=== PATIENT | male | born 1990 | race Caucasian/White ===

== ENCOUNTER 2020-02-07 10:04 | Emergency (ER) | payer SELFPAY ==
[2020-02-07 10:05] VITALS: BP 158/136; PULSE 114; RESP 18; TEMP 36.6; O2SAT 97; BMI 22.2
--- NOTE | 2020-02-07 11:46 | ED.VIS.GEN ---
History of Present Illness Chief Complaint: Cellulitis Informant: Patient Narrative: Patient states that he started using heroin and meth again last week. He developed cellulitis and swelling due to a picked scab the right eyebrow. He got a prescription for Bactrim took a couple days worth that he felt better so he stopped taking it. 2 days ago started swelling today is significantly worse. States he has not used for couple days and is doing better. No fevers. No vision changes. Past Medical History - Allergies and Home Meds Allergies/Adverse Reactions: Allergies No Known Allergies Allergy (Verified 02/07/20 10:07) Primary Care Physician: NOT,DEFINED [Primary Care Provider] - Smoking Status: Current every day smoker Review of Systems General: Denies: Chills, Fever, Sweats Eyes: Denies: Visual changes - bilaterally, Diplopia ENT: Denies: Rhinorrhea, Sore throat Cardiovascular: Denies: Chest pain, Palpitations Respiratory: Denies: Dyspnea, Cough, Dyspnea on exertion Gastrointestinal: Denies: Abdominal pain, Nausea, Vomiting, Diarrhea, Melena, Hematochezia Genitourinary: Denies: Dysuria, Hematuria, Frequency Musculoskeletal: Denies: Back pain, Extremity Pain Skin: Reports: Rash, Wounds Neurological: Denies: Headache, Weakness, Numbness Physical Exam Vital Signs/Narrative: Vital Signs Temp Pulse Resp BP Pulse Ox 02/07/20 10:05 98 F 114 H 18 158/136 H 97 Inital Vital Signs reviewed: Yes General: Well nourished, Well developed, No Acute Distress Head: Normocephalic, Atraumatic Eyes: Perrl, EOMI ENT: Moist mucous membranes, No rhinorrhea Neck: Supple, Nontender Cardiovascular: Regular rate, Regular rhythm, No murmurs Respiratory: No distress, CTA bilaterally, Chest nontender Abdomen: Soft, Nontender, Nondistended, Normal bowel sounds Back: Nontender, Normal Inspection Extremities: Nontender, No edema Skin: Normal color, - - Patient has numerous excoriated wounds on his face and body. The right eyebrow is significantly swollen and erythematous. This extends down onto the upper lid. The eye itself appears normal. EOMI. PERRLA. No photophobia. Neurological: Alert, Oriented x3, Cranial nerves II-XII grossly intact, Normal Strength, Normal Sensation Psychological: Normal affect, Normal Mood Diagnostic/Tx/Re-eval - Medical Decision Making Patient will be started on both Keflex and Bactrim. I have asked for him to have early follow-up return if worsening or concerns he notes understanding. We talked about his addiction and gave him resources. ED Disposition - Plan for ED Patient: Disposition: Home or Assisted Living Diagnosis: Facial cellulitis Instructions: Cellulitis Prescriptions: Smz/Tmp Ds [Bactrim Ds] 2 tab PO BID #28 tab Prescription Printed Cephalexin [Keflex] 500 mg PO Q6 #40 cap Prescription Printed Referrals: Aldo Villanueva MD [STAFF PHYSICIAN] - (3-5 days for wound check )
[2020-02-07 12:03] VITALS: BP 130/86; PULSE 90; RESP 16
--- NOTE | 2020-02-07 12:04 | ED.RN ---
REVIEWED D/C INSTRUCTIONS, FOLLOW UP CARE, PRESCRIPTIONS, AND S/S THAT WOULD WARRANT A RETURN TO THE ED WITH PT. PT VERBALIZED AN UNDERSTANDING AND DENIES FURTHER QUESTIONS FOR THIS RN. PT SKIN P/W/D, RESP EVEN AND UNLABORED, PT A&O X 3, NO DISTRESS NOTED.
== END 2020-02-07 12:23 | disposition home or self-care (01) ==
LOC: ED 12:15
PROVIDERS: Emergency Provider Emergency Medicine
DX: L03.211 Cellulitis of face (principal)
CPT/HCPCS: 99282

== ENCOUNTER 2020-02-14 18:51 | Observation (INO) | payer MEDICAID, SELFPAY ==
[2020-02-14 18:51] VITALS: BP 133/80; PULSE 100; RESP 14; TEMP 36.4; O2SAT 98; BMI 20.7
--- NOTE | 2020-02-14 19:10 | ED.DCSUM_ITS ---
- ER Visit Summary Date of Service: 02/14/20 Chief Complaint: Resting detox for heroin and methamphetamine abuse History of Present Illness: The patient is a 30 M history of drug abuse for 12 years. 3 years sober. For the last 3 weeks he has been abusing heroin and methamphetamines. Patient states he does shoot up. He denies any fever or chills. He has gone through detox in the past but not recently. Denies any recent illness. Physical Examination: Young male no acute distress vital signs stable afebrile. H EENT exam unremarkable. Neck nontender no lymphadenopathy. Lungs clear to auscultation bilaterally. Heart regular rhythm no murmur. Abdomen soft nontender. Patient moving all 4 extremities. No cellulitis. No abscess. He does have track edward in his left antecubital area. Back nontender. Skin unremarkable. Neurologically is awake and alert. No focal motor deficits. Test Results: [] Emergency Department Course and Treatment: I have are spoken to the hospitalist about admission. She did request screening labs. Treatment Plan: Admission for detox Disposition: Admission for detox Impression: Requesting detox for heroin and methamphetamine IV drug abuse History of drug abuse This note was generated with [employer] dictation software. It may contain incorrect words, spelling, and punctuation that were not noted in review of the chart prior to signing ED Disposition - Plan for ED Patient: Referrals: Care Physician,No Primary [Primary Care Provider] -
--- NOTE | 2020-02-14 19:35 | HP.PCM_ITS ---
Problem List (1) Acute opioid withdrawal Status: Acute (2) Nicotine dependence Status: Chronic Qualifiers: Nicotine product type: cigarettes (3) Cellulitis Status: Acute Qualifiers: Site of cellulitis: face Qualified Code(s): L03.211 - Cellulitis of face (4) Polysubstance (including opioids) dependence w/o physiol dependence Status: Acute History of Present Illness Date of Admission: 02/14/20 Chief Complaint: Request for medical stabilisation for acute opioid withdrawal The patient is a 30 year old M with past medical history of poly-substance use disorder, who had been sober for 3 years until 3 weeks ago whilst in a difficult job situation, patient relapsed and has been using heroin, fentanyl and methamphetamines. He admits to using more than 3 g of heroin/fentanyl/amphetamine mixture every other day. He has history of chemical detox in the past. He comes in requesting medical stabilization for cessation of IV heroin/fentanyl. He complains of mild restlessness but denied any hot or cold flashes or nausea or vomiting or diarrhea. He was recently seen in the ED on 02/07/20 with cellulitis of the face from picking up scabs. He was discharged on Bactrim and Keflex. He says that his cellulitis has improved significantly. In the ED, vitals showed temperature of 97.6F, heart rate 100, blood pressure 133/80, respiratory rate was 14, SPO2 98% on room air. His admitting blood work was pending. Past Medical History Past Medical History (Chronic Problems): Chronic Problems Nicotine dependence (Chronic) Allergies No Known Allergies Allergy (Verified 02/14/20 18:53) Home Medications: Ambulatory Orders Medication Instructions Recorded Cephalexin [Keflex] 500 mg PO Q6 #40 cap 02/07/20 Smz/Tmp Ds [Bactrim Ds] 2 tab PO BID #28 tab 02/07/20 Sulfamethoxazole/Trimethoprim 1 ea PO BID 02/07/20 [Sulfamethoxazole-Tmp Ds Tablet] Surgical History: arthroscopy, knee - Sepsis post right knee meniscal repair x2, torn ACLS x2, total hip arthroplasty - Status post left hip surgery during childhood Psychiatric History: No pertinent psych hx Lives: Spouse/ Significant Other Smoking Status: Current every day smoker Tobacco Use: Cigarettes Alcohol: None Drugs: Heroin, - - Fentanyl, methamphetamine - *Family History Paternal History Items: No pertinent history Maternal History Items: - - Polysubstance use disorder Review of Systems Constitutional: Denies: Anorexia, Chills, Fever, Malaise, Weakness, Weight Change, Fatigue Eyes: Denies: Blurred vision, Cataracts, Conjunctivae Inflammation, Pain, Redness, Vision Change HEENT: Denies: Difficulty Hearing, Difficulty Swallowing, Head Aches, Hearing Changes, Sinus Congestion, Sinus Drainage Cardiovascular: Denies: Chest Pain, Palpitations Respiratory: Denies: Cough, Shortness of breath at rest, Sputum production Gastrointestinal: Denies: Abdominal Pain, Nausea, Vomiting Genitourinary: Denies: Dysuria Musculoskeletal: Denies: Joint Pain, Joint Tenderness Skin: Reports: Rash - Recent cellulitis of the face, periorbital region, upper extremities and upper back. Denies: Wounds Neurological: Denies: Numbness, Tingling, Focal weakness Psychiatric: Denies: Anxiety, Depression, Homicidal Ideations, Suicidal Ideations Hematologic/ Lymphatic: Denies: Easy Bruising, Easy Bleeding VTE Information - Inpt Only VTE Present on Admission: No VTE Pharm Prophylaxis ordered?: Yes Patient Problems: Active and Suspected Problems Acute opioid withdrawal (Acute) Cellulitis (Acute) Polysubstance (including opioids) dependence w/o physiol dependence (Acute) - Physical Exam Vitals/I&O's: Vital Signs Temp Pulse Resp BP Pulse Ox 97.6 F L 100 14 133/80 H 98 02/14/20 18:51 02/14/20 18:51 02/14/20 18:51 02/14/20 18:51 02/14/20 18:51 Oxygen Delivery Method Room Air Weight: 65.771 kg Body Mass Index (BMI) 20.7 General: Alert, Oriented x3, Cooperative, No apparent distress HEENT: Atraumatic, PERRLA, EOMI, Normocephalic Oral: Moist Mucosa Neck: Supple Lungs: Clear to auscultation, Normal air movement Cardiovascular: Regular rate, Regular Rhythm, Normal S1, Normal S2, No murmurs Abdomen: Bowel Sounds Present, Soft, Non Tender, Non-Distended, No Hepato- splenomegaly Extremities: No edema Skin: - - Healing, erythematous areas around the bilateral orbital ridges and various parts of the face as well as upper extremities and upper back. Areas of healing impetiginized lesions/scabs. Needle track edward as well as areas of patrick. Musculoskeletal: No Tenderness to Palpation of Joints or Extremities Lymphatic: No Cervical, Supraclavicular, or Inguinal Adenopathy Neurological: Cranial nerves II-XII grossly intact, Neuro grossly intact Psych/Mental Status: Normal Affect, Appropriate Laboratory Results 02/14/20 19:30: Sodium Pending, Potassium Pending, Chloride Pending, Carbon Dioxide Pending, Anion Gap Pending, BUN Pending, Creatinine Pending, Est GFR (MDRD) Af Amer Pending, Est GFR (MDRD) Non-Af Pending, BUN/Creatinine Ratio Pending, Glucose Pending, Calcium Pending, Total Bilirubin Pending, AST Pending, ALT Pending, Alkaline Phosphatase Pending, Total Protein Pending, Albumin Pending Assessment/Plan All Active Problems Acute opioid withdrawal (Acute) Cellulitis (Acute) Polysubstance (including opioids) dependence w/o physiol dependence (Acute) 1. Acute opioid withdrawal, in a patient with polysubstance use disorder Patient uses IV heroin, fentanyl and methamphetamines Admitting urine tox is positive for opiates and cannabinoids Would admit and monitor on the opiate withdrawal protocol 2. Nicotine dependence, will put on replacement with patch and nicotine gum prn 3. Recent facial/body cellulitis/impetiginized lesions, on p.o. Bactrim and Kefl ex Started on 02/07/20, will come continue same 4. DVT prophylaxis with early ambulation Inpatient E&M: 26190 Init Hosp L2
[2020-02-14 19:37] VITALS: BP 121/78; PULSE 86; RESP 16; TEMP 37; O2SAT 96
[2020-02-14 19:55] LABS: ALB/GLOB Ratio 1.1 RATIO (0.9-2.4); AST(SGOT) 32 U/L (15-37); Alanine Aminotransfer ALT/SGPT 57 U/L (16-61); Albumin, Serum 3.8 g/dL (3.2-5.0); Alkaline Phosphatase 66 U/L (45-117); Anion Gap 3 (5-15); BUN 19 mg/dL (7-18); BUN/Creat Ratio 18.1 RATIO (10-20); Calcium,Total 8.6 mg/dL (8.5-10.1); Chloride 106 mmol/L (98-107); Creatinine, Serum 1.05 mg/dL (0.70-1.30); EST Glomerular Filtration Rate 88 mL/min (>60); Est Glom Filt Rate - Afr Amer 107 mL/min (>60); Globulin 3.5 g/dL (2.2-4.2); Glucose 81 mg/dL (74-106); Potassium 3.7 mmol/L (3.5-5.1); Protein, Total 7.3 g/dL (6.4-8.2); Sodium Level 139 mmol/L (136-145)
[2020-02-14 19:57] VITALS: BMI 20.5
[2020-02-14 20:01] VITALS: BP 117/74; PULSE 89; RESP 16; TEMP 36.9; O2SAT 97
[2020-02-14 20:06] VITALS: BMI 20.6
[2020-02-14 21:20] LABS: Absolute Lymphocyte Count 3.46 X10^3/uL (0.83-4.51); Absolute Neutrophil Count 4.2 X10^3/uL (2.0-7.7); Basophil# 0.04 X10^3/uL; Basophil% 0.4 % (0-1); Eosinophil# 0.46 X10^3/uL; Eosinophils% 5.2 % (0-5); Hematocrit 43.6 % (40-54); Hemoglobin 14.6 g/dL (13.0-16.5); Lymphocyte # 3.46 X10^3/ul (4.0); Lymphocyte % 38.9 % (19-41); Mean Corp Hgb Conc 33.5 g/dL (32-36); Mean Corpuscular Hgb 28.6 pg (27.0-32.0); Mean Corpuscular Volume 85.5 fL (80-94); Mean Platelet Vol. 9.1 fl (6.2-12.0); Monocyte# 0.68 X10^3/uL; Monocyte% 7.6 % (0-10); NRBC Flagged by Analyzer 0 % (0-5); Neutrophil # 4.23 X10^3/uL (2.7-7.7); Neutrophil % 47.7 % (47-70); Platelet Count 242 K/mm3 (150-450); RBC Distribution Width SD 37.2 fl (35.1-43.9); White Blood Count 8.9 K/mm3 (4.4-11.0)
[2020-02-15] MEDS: Cephalexin 500 MG Capsule PO ×4 (00:11→18:42)
[2020-02-15 02:03] VITALS: BP 99/60; PULSE 71; RESP 16; TEMP 36.6; O2SAT 97
[2020-02-15] MEDS: Buprenorphine HCl 2 MG TAB.SUBL SL ×3 (02:09→17:12)
[2020-02-15] MEDS: Dicyclomine 10 MG Capsule 20 MG PO ×2 (06:16→15:14)
[2020-02-15] MEDS: Methocarbamol 750 MG Tablet 1500 MG PO ×2 (06:16→15:14)
[2020-02-15] MEDS: cloNIDine HCl 0.1 MG Tablet PO ×2 (06:17→20:02)
[2020-02-15] MEDS: hydrOXYzine PAM 25 MG Capsule 50 MG PO ×2 (06:17→15:20)
[2020-02-15] MEDS: Smz/Tmp Ds Tablet 1 TABLET PO ×2 (08:21→17:12)
[2020-02-15] MEDS: Gabapentin 300 MG Capsule PO ×2 (08:21→20:02)
[2020-02-15] MEDS: Nicotine Polacrilex 2 MG GUM PO (08:22)
[2020-02-15 10:00] VITALS: BP 118/68; PULSE 67; RESP 16; RESP 18; TEMP 36.8; O2SAT 97
--- NOTE | 2020-02-15 10:50 | NT.THERAPY_ITS ---
Nutrition Therapy Report - History Nutrition Services has been consulted to:: Manage nutrient details of diet order Current diet / nutrition support order:: regular diet; ensure enlive 120mL 4x/day - Anthropometric Measurements Height:: 5 ft 10 in Weight:: 65.1 kg Body Mass Index (BMI):: 20.5 - Relevant Labs Relevant Labs:: Eos % (Auto) 5.2 % (0-5) H 02/14/20 21:10 Anion Gap 3 (5-15) L 02/14/20 19:30 BUN 19 mg/dL (7-18) H 02/14/20 19:30 - Assessment Food / Nutrition-Related History:: Pt reports good appetite/intake this AM. Reports eating very little w/ poor appetite for 3 weeks [employer] d/t drug abuse. States UBW 165# w/ unintentional wt loss over 3 weeks. CBW 143.5#-21.5#/13%, significant for acute malnutrition. No special diet followed normally at home. - Nutrition Diagnosis Problem / Etiology / Signs & Symptoms (PES):: Severe malnutrition related to inadequate energy intake in context of social/behavioral circumstances (drug abuse) as evidenced by estimated PO intake meeting less than 50% of pt's estimated nutritional needs and 21.5#/13% unintentional wt loss x 3 weeks [employer]. Evidence of Malnutrition Exists:: Yes Severe PCM:: Social & Environmental circumstances - Nutrition Intervention Nutrition Prescription:: [id number] calories/day; 65-75 g protein/day - Food / Nutrient Delivery Interventions Summary of nutrition intervention:: Will continue regular diet and 120mL ensure enlive 4x/day as ordered Nutrition education provided?: No - pt declined - MNT Monitoring Further MNT monitoring and evaluation required?: Yes MNT Follow-up in:: 3-5 days
[2020-02-15 10:54] VITALS: BMI 20.5
--- NOTE | 2020-02-15 12:36 | PN_ITS ---
Patient Problems: Active and Suspected Problems Acute opioid withdrawal (Acute) Cellulitis (Acute) Polysubstance (including opioids) dependence w/o physiol dependence (Acute) Subjective: No issues overnight, doing well. Vitals/I&O's: Vital Signs Temp Pulse Resp BP Pulse Ox 98.3 F 67 18 118/68 97 02/15/20 10:00 02/15/20 10:00 02/15/20 10:00 02/15/20 10:00 02/15/20 10:00 Oxygen Delivery Method Room Air Weight: 143 lb 8.335 oz Body Mass Index (BMI) 20.5 General: Alert, Oriented x3, Cooperative, No apparent distress HEENT: Atraumatic, PERRLA, EOMI, Normocephalic Oral: Moist Mucosa Neck: Supple, No JVD Lungs: Clear to auscultation, Normal air movement, No rhonchi, No wheeze, No rales Cardiovascular: Regular rate, Regular Rhythm, Normal S1, Normal S2, No murmurs Abdomen: Soft, Non Tender, Non-Distended, No Hepato-splenomegaly Extremities: No edema, Capillary Refill Less than 3 Seconds Skin: No rashes, No breakdown, - - Healing facial and upper extremity lesions Neurological: Neuro grossly intact, Sensory exam intact to light touch and pain Psych/Mental Status: Normal Affect, Appropriate Laboratory Results 02/14/20 19:30: Sodium 139, Potassium 3.7, Chloride 106, Carbon Dioxide 30.0, Anion Gap 3 L, BUN 19 H, Creatinine 1.05, Estim Creat Clear Calc 95.70, Est GFR (MDRD) Af Amer 107, Est GFR (MDRD) Non-Af 88, BUN/Creatinine Ratio 18.1, Glucose 81, Calcium 8.6, Total Bilirubin 0.50, AST 32, ALT 57, Alkaline Phosphatase 66, Total Protein 7.3, Albumin 3.8, Globulin 3.5, Albumin/Globulin Ratio 1.1 02/14/20 21:10: WBC 8.9, RBC 5.10, Hgb 14.6, Hct 43.6, MCV 85.5, MCH 28.6, MCHC 33.5, RDW Std Deviation 37.2, RDW Coeff of Ganga 12.0, Plt Count 242, MPV 9.1, Immature Gran % (Auto) 0.200, Neut % (Auto) 47.7, Lymph % (Auto) 38.9, [place] % (Auto) 7.6, Eos % (Auto) 5.2 H, Baso % (Auto) 0.4, Absolute Neuts (auto) 4.2, Absolute Lymphs (auto) 3.46, Nucleated RBC % 0 Current Medications Acetaminophen (Tylenol) 500 mg PO Q4H PRN PRN PRN Reason: Temp > 100.4 F Al Hydroxide/Mg Hydroxide (Mylanta Ii) 30 ml PO Q6H PRN PRN PRN Reason: dyspesia Bisacodyl (Dulcolax) 10 mg RECTAL DAILY PRN PRN Reason: Constipation Buprenorphine HCl (Buprenorphine Hcl) 4 mg SL Q8H JUSTINO; Taper Stop: 02/18/20 01:29 Last Admin: 02/15/20 09:32 Dose: 4 mg Documented by: Cephalexin (Keflex) 500 mg PO Q6 JUSTINO Last Admin: 02/15/20 06:10 Dose: 500 mg Documented by: Clonidine (Catapres) 0.1 mg PO Q8H PRN PRN PRN Reason: RESTLESSNESS Last Admin: 02/15/20 06:17 Dose: 0.1 mg Documented by: Dicyclomine HCl (Bentyl) 20 mg PO Q6H PRN PRN PRN Reason: Abdominal Discomfort Last Admin: 02/15/20 06:16 Dose: 20 mg Documented by: Gabapentin (Neurontin) 300 mg PO Q8H PRN PRN PRN Reason: moderate to severe anxiety Last Admin: 02/15/20 08:21 Dose: 300 mg Documented by: Hydroxyzine Pamoate (Vistaril Pamoate Capsule) 50 mg PO Q6H PRN PRN PRN Reason: mild anxiety Last Admin: 02/15/20 06:17 Dose: 50 mg Documented by: Ibuprofen (Motrin) 600 mg PO Q8H PRN PRN PRN Reason: Pain Score 1-10/10 Loperamide HCl (Imodium) 2 mg PO Q4H PRN PRN PRN Reason: LOOSE STOOLS Methocarbamol (Methocarbamol) 1,500 mg PO Q6H PRN PRN PRN Reason: MUSCLE SPASM Last Admin: 02/15/20 06:16 Dose: 1,500 mg Documented by: Nicotine (Nicoderm Cq (Pbkc)) 21 mg TRANSDERM. DAILY [facility] Last Admin: 02/15/20 09:32 Dose: 21 mg Documented by: Nicotine Polacrilex (Rugby Nicotine (Bkc)) 2 mg PO Q2H PRN PRN PRN Reason: Nicotine Craving Last Admin: 02/15/20 08:22 Dose: 2 mg Documented by: Nutritional Formula (Lactose Free) (Ensure Enlive) 120 ml PO 4X/DAY [facility] Last Admin: 02/15/20 09:32 Dose: Not Given Documented by: Ondansetron HCl (Zofran) 8 mg PO Q8H PRN PRN PRN Reason: NAUSEA Senna (Senokot) 2 tablet PO QHS PRN PRN Reason: Constipation Trazodone HCl (Desyrel) 100 mg PO QHS PRN PRN PRN Reason: INSOMNIA Trimethoprim/Sulfamethoxazole (Bactrim Ds) 1 tablet PO BIDCM [facility] Last Admin: 02/15/20 08:21 Dose: 1 tablet Documented by: STROKE Vital Signs/Narrative: Vital Signs Temp Pulse Resp BP Pulse Ox 02/15/20 10:00 98.3 F 67 18 118/68 97 Medical Necessity - Tobacco Use Smoking Status: Current every day smoker Tobacco Use: Cigarettes Assessment/Plan All Active Problems Acute opioid withdrawal (Acute) Cellulitis (Acute) Polysubstance (including opioids) dependence w/o physiol dependence (Acute) 1. Acute opiate withdrawal/tobacco abuse -Continue with opiate withdrawal protocol. He has been using for 12 years about 3 g every other day of heroin -He lives in [place] -Advised cessation of tobacco products, continue with nicotine patch 2. Recent facial and body cellulitis -These appear improved -Continue with Bactrim and Keflex which was started on 02/07/2020 DVT: Ambulation Inpatient E&M: 40621 Subs Hosp L2
[2020-02-15 15:26] VITALS: BP 102/62; PULSE 73; RESP 16; TEMP 36.8; O2SAT 97
[2020-02-15 19:58] VITALS: BP 101/56; PULSE 66; RESP 16; TEMP 37.1; O2SAT 98
[2020-02-15] MEDS: traZODone 100 MG Tablet PO (20:02)
[2020-02-16] MEDS: Cephalexin 500 MG Capsule PO ×4 (00:38→17:22)
[2020-02-16] MEDS: Buprenorphine HCl 2 MG TAB.SUBL SL ×3 (00:40→17:21)
[2020-02-16] MEDS: hydrOXYzine PAM 25 MG Capsule 50 MG PO ×3 (00:46→20:41)
[2020-02-16] MEDS: Methocarbamol 750 MG Tablet 1500 MG PO ×2 (00:46→09:36)
[2020-02-16 06:08] VITALS: BP 98/51; PULSE 75; RESP 14; TEMP 36.6; O2SAT 99
[2020-02-16] MEDS: Ibuprofen 600 MG Tablet PO ×2 (06:11→20:41)
[2020-02-16] MEDS: Gabapentin 300 MG Capsule PO ×2 (06:11→20:41)
[2020-02-16] MEDS: Smz/Tmp Ds Tablet 1 TABLET PO ×2 (08:31→17:22)
--- NOTE | 2020-02-16 08:48 | PN_ITS ---
Patient Problems: Active and Suspected Problems Acute opioid withdrawal (Acute) Cellulitis (Acute) Polysubstance (including opioids) dependence w/o physiol dependence (Acute) Subjective: Doing well, no acute overnight. Vitals/I&O's: Vital Signs Temp Pulse Resp BP Pulse Ox 97.9 F 75 14 98/51 L 99 02/16/20 06:08 02/16/20 06:08 02/16/20 06:08 02/16/20 06:08 02/16/20 06:08 Oxygen Delivery Method Room Air Weight: 143 lb 8.335 oz Body Mass Index (BMI) 20.5 Intake and Output for Last 24 Hours 02/14/20 02/15/20 02/16/20 23:59 23:59 23:59 Intake Total 1650 / 1650 300 / 300 Balance 1650 / 1650 300 / 300 General: Alert, Oriented x3, Cooperative, No apparent distress HEENT: Atraumatic, PERRLA, EOMI, Normocephalic Oral: Moist Mucosa Neck: Supple, No JVD Lungs: Clear to auscultation, Normal air movement, No rhonchi, No wheeze, No rales Cardiovascular: Regular rate, Regular Rhythm, Normal S1, Normal S2, No murmurs Abdomen: Soft, Non Tender, Non-Distended, No Hepato-splenomegaly Extremities: No edema, Capillary Refill Less than 3 Seconds Skin: No rashes, No breakdown, - - Healing facial and upper extremity lesions Neurological: Neuro grossly intact, Sensory exam intact to light touch and pain Psych/Mental Status: Normal Affect, Appropriate Current Medications Acetaminophen (Tylenol) 500 mg PO Q4H PRN PRN PRN Reason: Temp > 100.4 F Al Hydroxide/Mg Hydroxide (Mylanta Ii) 30 ml PO Q6H PRN PRN PRN Reason: dyspesia Bisacodyl (Dulcolax) 10 mg RECTAL DAILY PRN PRN Reason: Constipation Buprenorphine HCl (Buprenorphine Hcl) 2 mg SL Q8H JUSTINO; Taper Stop: 02/18/20 01:29 Last Admin: 02/16/20 00:40 Dose: 2 mg Documented by: Cephalexin (Keflex) 500 mg PO Q6 JUSTINO Last Admin: 02/16/20 06:11 Dose: 500 mg Documented by: Clonidine (Catapres) 0.1 mg PO Q8H PRN PRN PRN Reason: RESTLESSNESS Last Admin: 02/15/20 20:02 Dose: 0.1 mg Documented by: Dicyclomine HCl (Bentyl) 20 mg PO Q6H PRN PRN PRN Reason: Abdominal Discomfort Last Admin: 02/15/20 15:14 Dose: 20 mg Documented by: Gabapentin (Neurontin) 300 mg PO Q8H PRN PRN PRN Reason: moderate to severe anxiety Last Admin: 02/16/20 06:11 Dose: 300 mg Documented by: Hydroxyzine Pamoate (Vistaril Pamoate Capsule) 50 mg PO Q6H PRN PRN PRN Reason: mild anxiety Last Admin: 02/16/20 00:46 Dose: 50 mg Documented by: Ibuprofen (Motrin) 600 mg PO Q8H PRN PRN PRN Reason: Pain Score 1-10/10 Last Admin: 02/16/20 06:11 Dose: 600 mg Documented by: Loperamide HCl (Imodium) 2 mg PO Q4H PRN PRN PRN Reason: LOOSE STOOLS Methocarbamol (Methocarbamol) 1,500 mg PO Q6H PRN PRN PRN Reason: MUSCLE SPASM Last Admin: 02/16/20 00:46 Dose: 1,500 mg Documented by: Nicotine (Nicoderm Cq (Pbkc)) 21 mg TRANSDERM. DAILY [facility] Last Admin: 02/15/20 09:32 Dose: 21 mg Documented by: Nicotine Polacrilex (Rugby Nicotine (Bkc)) 2 mg PO Q2H PRN PRN PRN Reason: Nicotine Craving Last Admin: 02/15/20 08:22 Dose: 2 mg Documented by: Nutritional Formula (Lactose Free) (Ensure Enlive) 120 ml PO 4X/DAY [facility] Last Admin: 02/15/20 20:03 Dose: 120 ml Documented by: Ondansetron HCl (Zofran) 8 mg PO Q8H PRN PRN PRN Reason: NAUSEA Senna (Senokot) 2 tablet PO QHS PRN PRN Reason: Constipation Trazodone HCl (Desyrel) 100 mg PO QHS PRN PRN PRN Reason: INSOMNIA Last Admin: 02/15/20 20:02 Dose: 100 mg Documented by: Trimethoprim/Sulfamethoxazole (Bactrim Ds) 1 tablet PO BIDCM [facility] Last Admin: 02/16/20 08:31 Dose: 1 tablet Documented by: STROKE Vital Signs/Narrative: Vital Signs Temp Pulse Resp BP Pulse Ox 02/16/20 06:08 97.9 F 75 14 98/51 L 99 Medical Necessity - Tobacco Use Smoking Status: Current every day smoker Tobacco Use: Cigarettes Assessment/Plan All Active Problems Acute opioid withdrawal (Acute) Cellulitis (Acute) Polysubstance (including opioids) dependence w/o physiol dependence (Acute) 1. Acute opiate withdrawal/tobacco abuse -Continue with opiate withdrawal protocol. He has been using for 12 years about 3 g every other day of heroin -He lives in [place] -Advised cessation of tobacco products, continue with nicotine patch 2. Recent facial and body cellulitis -These appear improved -Continue with Bactrim and Keflex which was started on 02/07/2020 DVT: Ambulation Inpatient E&M: 28057 Subs Hosp L2
[2020-02-16] MEDS: Dicyclomine 10 MG Capsule 20 MG PO (09:36)
[2020-02-16 10:00] VITALS: RESP 18
[2020-02-16 11:18] VITALS: BP 93/54; PULSE 78; RESP 16; TEMP 36.8; O2SAT 99
[2020-02-16 17:58] VITALS: BP 99/61; PULSE 65; RESP 18; TEMP 36.7; O2SAT 99
[2020-02-16 20:35] VITALS: BP 112/57; PULSE 72; RESP 16; TEMP 37; O2SAT 97
[2020-02-16] MEDS: traZODone 100 MG Tablet PO (20:41)
[2020-02-16] MEDS: cloNIDine HCl 0.1 MG Tablet PO (20:41)
[2020-02-17] MEDS: Cephalexin 500 MG Capsule PO ×3 (00:41→12:40)
[2020-02-17] MEDS: Methocarbamol 750 MG Tablet 1500 MG PO ×2 (00:41→09:39)
[2020-02-17] MEDS: Buprenorphine HCl 2 MG TAB.SUBL SL ×2 (00:42→12:39)
[2020-02-17] MEDS: Gabapentin 300 MG Capsule PO (05:41)
[2020-02-17] MEDS: hydrOXYzine PAM 25 MG Capsule 50 MG PO (05:41)
[2020-02-17 05:46] VITALS: BP 90/50; PULSE 60; RESP 14; TEMP 36.4; O2SAT 97
[2020-02-17 09:25] VITALS: BP 88/54; PULSE 81; RESP 16; TEMP 36.9; O2SAT 98
[2020-02-17] MEDS: Smz/Tmp Ds Tablet 1 TABLET PO (09:29)
[2020-02-17] MEDS: Nicotine Polacrilex 2 MG GUM PO (09:32)
[2020-02-17] MEDS: Dicyclomine 10 MG Capsule 20 MG PO (09:39)
--- NOTE | 2020-02-17 10:24 | CASEMGMT ---
Social Work Note Pt is RAMP pt. Per handoff communication, Donita saw pt and plan is for pt to do outpatient in [place]. ELINA received call from Radha in [facility] stating they attempted to call pt as they are still not going into pt's room but pt didn't answer. SW in to speak with pt. Pt confirms he doesn't have insurance. ELINA provided pt with financial resources including [facility] direct number, [employer] application, [employer], [employer], [employer], RX assistance programs including prescription hope and Medicaid application. ELINA placed a call to Radha in [facility] and updated Radha that pt is RAMP pt so pt doesn't have access to any phones in room. Radha states she will mail pt resources. Radha Murdock PUMP TECHNICIAN, [employer]
--- NOTE | 2020-02-17 10:31 | DCINST_ITS ---
- Discharge Diagnoses Current Active Problems: Current Active and Chronic Problems Acute opioid withdrawal (Acute) Nicotine dependence (Chronic) Cellulitis (Acute) Polysubstance (including opioids) dependence w/o physiol dependence (Acute) You will use the following diet at home:: No restrictions Your food should be the consistency of: Regular Your liquids should be the consistency of: Regular/Thin Discharge Activity: Return to Normal Activity Additional Instructions: follow up with IOP as scheduled Allergies/Adverse Reactions: Allergies No Known Allergies Allergy (Verified 02/14/20 18:53) Primary Care Physician: Care Physician,No Primary [Primary Care Provider] - Test Results: Test results from this visit will be discussed in further detail at your follow- up appointment, if applicable.
--- NOTE | 2020-02-17 18:21 | PCM.DC.SUM ---
Discharge Date and Diagnosis Date of Admission: 02/14/20 Date of Discharge: 02/17/20 - Primary Discharge Diagnosis Acute Problems: #1 acute opiate withdrawal #2 chronic opiate addiction #3 facial cellulitis #4 polysubstance abuse - Secondary Discharge Diagnosis Chronic Problems: Chronic Problems Nicotine dependence (Chronic) Hospital Course and Treatment Operations: None Procedures: None Summary of Care Provided: The patient is a 30 year old M who was seen in the emergency room at [facility] requesting detox for heroin and methamphetamine abuse, screening labs obtained were unremarkable, patient was admitted to [place] [address] and orders were entered using the opiate detox order set, during the patient's hospitalization, patient had no untoward events. Arrangements were made for the patient to follow-up with an intensive outpatient program at the time of his discharge. Patient was kept on oral antibiotics which had been started as an outpatient for an area of cellulitis above his right eyebrow. On 02/17/2020, patient was seen and examined: On examination he appeared in good health and spirits. Vital signs as documented. Skin warm and dry and without overt rashes. Neck without JVD, neck was supple, trachea midline, thyroid was normal. Lungs clear bilaterally, normal air movement was noted. Heart exam notable for regular rhythm, normal sounds and absence of murmurs, rubs or gallops. Abdomen unremarkable and without evidence of organomegaly, masses, or abdominal aortic enlargement. Bowel sounds are present, abdomen is not distended. Extremities nonedematous, no cyanosis was noted, no clubbing was noted. Neuro: Cranial nerves II through XII are grossly intact, no focal motor deficits were noted, sensation to light touch and pinprick intact, motor exam 5/5 throughout. Psych: Patient is alert and oriented x3, he does not appear anxious or depressed, he does not appear agitated. Patient was discharged in stable condition on 02/17/2020. - Physical Exam Vitals/I&O's: Vital Signs Temp Pulse Resp BP Pulse Ox 98.4 F 81 16 88/54 L 98 02/17/20 09:25 02/17/20 09:25 02/17/20 09:25 02/17/20 09:25 02/17/20 09:25 Oxygen Delivery Method Room Air Weight: 65.1 kg Body Mass Index (BMI) 20.5 Intake and Output for Last 24 Hours 02/15/20 02/16/20 02/17/20 23:59 23:59 23:59 Intake Total 1650 / 1650 2700 / 3000 1700 / 1700 Balance 1650 / 1650 2700 / 3000 1700 / 1700 Discharge Activity: Return to Normal Activity Primary Care Physician: Care Physician,No Primary [Primary Care Provider] - Disposition: Home Minutes spent on discharge:: 32 Patient Condition:: Stable Medical Necessity - Tobacco Use Smoking Status: Current every day smoker Tobacco Use: Cigarettes Meaningful Use Info Meaningful Use Diagnoses (Choose all that apply): None applicable Inpatient E&M: 11960 Disch Hosp
== END 2020-02-17 13:00 | disposition home or self-care (01) | DRG 897 ==
LOC: ED 19:20 → MS3 19:51
PROVIDERS: Admitting Provider Internal Medicine; Emergency Provider Emergency Medicine; Referring Provider Internal Medicine; Visit Provider Internal Medicine
DX: F11.23 Opioid dependence with withdrawal (principal); L03.211 Cellulitis of face; F15.10 Other stimulant abuse, uncomplicated; F17.210 Nicotine dependence, cigarettes, uncomplicated
CPT/HCPCS: 36415; 80048; 80053; 85025; 97802; 99218; 99283; 99406; G0378

== ENCOUNTER 2020-02-28 09:42 | Observation (INO) | payer MEDICAID, SELFPAY ==
[2020-02-28] VITALS (9 sets, daily range): BP systolic 86–130; BP diastolic 38–76; PULSE 60–110; RESP 14–18; TEMP 36.1–37.2; O2SAT 96–99; BMI 21.5; BMI 21.1
--- NOTE | 2020-02-28 10:02 | ED.VIS.GEN ---
History of Present Illness Informant: Patient, Family Onset: Yesterday Context: Gradual Onset Timing: Continuous Quality: nausea Location: abdomen Current Severity: Severe Maximum Severity: Severe Worsened by: nothing Relieved by: nothing Associated Symptoms: nausea, chills Narrative: 30-year-old male history of polysubstance abuse presents needing detox from heroin. He was actually admitted here in discharge about 10 days ago for the same. After discharge she continued to use heroin. He uses IV heroin. He uses 3 g/day. Last use was just under 24 hours ago. He feels nauseated he has some myalgias he feels kind of malaise. No vomiting no chest pain or shortness of breath he is not lightheaded or dizzy no symptoms of bleeding denies thoughts of suicide or homicide Prior similar symptoms: Yes Recent Illness/Hospitalization: Yes <Saran Rider - Last Filed: 02/28/20 11:45> <Solo Wililam - Last Filed: 02/28/20 12:08> Chief Complaint: Substance Abuse Past Medical History Prior records reviewed: Yes Past Medical History: - - Polysubstance abuse Surgical History: arthroscopy, knee - Sepsis post right knee meniscal repair x2, torn ACLS x2, total hip arthroplasty - Status post left hip surgery during childhood Lives: With Family Smoking Status: Current every day smoker Alcohol: Occasional Drugs: Heroin - Family History Paternal Family History: Reports: No pertinent history Maternal Family History: Reports: - - Polysubstance use disorder <Saran Rider - Last Filed: 02/28/20 11:45> <Solo William - Last Filed: 02/28/20 12:08> - Allergies and Home Meds Allergies/Adverse Reactions: Allergies No Known Allergies Allergy (Verified 02/28/20 09:43) Review of Systems General: Reports: Malaise, Sweats. Denies: Chills, Fever, Weight loss Eyes: Denies: Visual changes - bilaterally, Diplopia ENT: Denies: Rhinorrhea, Sore throat Cardiovascular: Denies: Chest pain, Palpitations, Heart racing Respiratory: Denies: Dyspnea, Cough, Dyspnea on exertion Gastrointestinal: Reports: Nausea. Denies: Abdominal pain, Vomiting, Diarrhea, Constipation, Melena, Hematochezia Genitourinary: Denies: Dysuria, Hematuria, Frequency Musculoskeletal: Reports: Myalgias. Denies: Back pain, Extremity Pain Skin: Denies: Rash, Wounds Neurological: Denies: Headache, Weakness, Numbness <RajindertkJesusSaran - Last Filed: 02/28/20 11:45> Physical Exam Vital Signs/Narrative: Vital Signs Temp Pulse Resp BP Pulse Ox 02/28/20 09:42 97 F L 110 H 14 130/76 H 99 Inital Vital Signs reviewed: Yes General: Well nourished, Well developed, No Acute Distress Head: Normocephalic, Atraumatic Eyes: Perrl, EOMI ENT: Moist mucous membranes, No rhinorrhea Neck: Supple, Nontender Cardiovascular: Regular rate, Regular rhythm, No murmurs Respiratory: No distress, CTA bilaterally, Chest nontender Abdomen: Soft, Nontender, Nondistended, Normal bowel sounds Back: Nontender, Normal Inspection Extremities: Nontender, No edema Skin: Normal color, No rash, - - Patient has track edward over both arms but there are no signs of acute abscess cellulitis or infection. Neurological: Alert, Oriented x3, Cranial nerves II-XII grossly intact, Normal Strength, Normal Sensation Psychological: Normal affect, Normal Mood <Saran Rider - Last Filed: 02/28/20 11:45> Vital Signs/Narrative: Vital Signs Temp Pulse Resp BP Pulse Ox 02/28/20 11:00 16 02/28/20 10:42 16 02/28/20 09:42 97 F L 110 H 14 130/76 H 99 <Solo William - Last Filed: 02/28/20 12:08> Diagnostic/Tx/Re-eval Laboratory Results 02/28/20 02/28/20 02/28/20 10:00 10:00 10:00 WBC 4.1 L RBC 5.20 Hgb 15.3 Hct 45.3 MCV 87.1 MCH 29.4 MCHC 33.8 RDW Std Deviation 38.4 RDW Coeff of Ganga 12.0 Plt Count 165 MPV 9.2 Immature Gran % (Auto) 0.500 Neut % (Auto) 55.5 Lymph % (Auto) 25.4 [place] % (Auto) 15.2 H Eos % (Auto) 2.9 Baso % (Auto) 0.5 Absolute Neuts (auto) 2.3 Absolute Lymphs (auto) 1.04 Nucleated RBC % 0 Sodium 139 Potassium 4.3 Chloride 106 Carbon Dioxide 32.0 Anion Gap 1 L BUN 11 Creatinine 0.80 Estim Creat Clear Calc 129.94 Est GFR (MDRD) Af Amer 146 Est GFR (MDRD) Non-Af 120 BUN/Creatinine Ratio 13.7 Glucose 74 Calcium 8.8 Urine Opiates Screen Urine Methadone Screen Ur Barbiturates Screen Ur Phencyclidine Scrn Ur Amphetamines Screen U Methamphetamin-MDMA U Benzodiazepines Scrn Urine Cocaine Screen U Cannabinoids Screen Ur Drug Screen Comment Ethyl Alcohol 6.0 02/28/20 11:08 WBC RBC Hgb Hct MCV MCH MCHC RDW Std Deviation RDW Coeff of [place]anga Plt Count MPV Immature Gran % (Auto) Neut % (Auto) Lymph % (Auto) [place] % (Auto) Eos % (Auto) Baso % (Auto) Absolute Neuts (auto) Absolute Lymphs (auto) Nucleated RBC % Sodium Potassium Chloride Carbon Dioxide Anion Gap BUN Creatinine Estim Creat Clear Calc Est GFR (MDRD) Af Amer Est GFR (MDRD) Non-Af BUN/Creatinine Ratio Glucose Calcium Urine Opiates Screen NEGATIVE Urine Methadone Screen NEGATIVE Ur Barbiturates Screen NEGATIVE Ur Phencyclidine Scrn NEGATIVE Ur Amphetamines Screen NEGATIVE U Methamphetamin-MDMA NEGATIVE U Benzodiazepines Scrn NEGATIVE Urine Cocaine Screen NEGATIVE U Cannabinoids Screen NEGATIVE Ur Drug Screen Comment Ethyl Alcohol - Medical Decision Making Patient was given IV fluids and a dose of IV Phenergan. His laboratory work-up was unremarkable. His drug screen was negative. His alcohol level was 6. He did with his addiction social worker. This was because he was just admitted here earlier this month but has relapsed. Dr. Vergara agreed to admit <Saran Rider - Last Filed: 02/28/20 11:45> - Medical Decision Making I performed a history and physical examination of the patient and discussed management plan with the physician library services assistant. I reviewed the physician library services assistant's note and agree with the documented findings and plan of care. Patient requesting heroin detox again. Patient was admitted previously this month and is supposed to start inpatient detox on Monday through . Solo William DO, MS <Solo William - Last Filed: 02/28/20 12:08> ED Disposition <Saran Rider - Last Filed: 02/28/20 11:45> <Solo William - Last Filed: 02/28/20 12:08> - Plan for ED Patient: Disposition: Acute Care Hospital [facility] Diagnosis: Acute opioid withdrawal, Polysubstance (including opioids) dependence w/o physiol dependence
[2020-02-28] MEDS: proMETHazine 25 MG/ML Syringe 12.5 MG IV (10:03)
[2020-02-28 10:10] LABS: Absolute Lymphocyte Count 1.04 X10^3/uL (0.83-4.51); Absolute Neutrophil Count 2.3 X10^3/uL (2.0-7.7); Basophil# 0.02 X10^3/uL; Basophil% 0.5 % (0-1); Eosinophil# 0.12 X10^3/uL; Eosinophils% 2.9 % (0-5); Hematocrit 45.3 % (40-54); Hemoglobin 15.3 g/dL (13.0-16.5); Lymphocyte # 1.04 X10^3/ul (4.0); Lymphocyte % 25.4 % (19-41); Mean Corp Hgb Conc 33.8 g/dL (32-36); Mean Corpuscular Hgb 29.4 pg (27.0-32.0); Mean Corpuscular Volume 87.1 fL (80-94); Mean Platelet Vol. 9.2 fl (6.2-12.0); Monocyte# 0.62 X10^3/uL; Monocyte% 15.2 % (0-10); NRBC Flagged by Analyzer 0 % (0-5); Neutrophil # 2.27 X10^3/uL (2.7-7.7); Neutrophil % 55.5 % (47-70); Platelet Count 165 K/mm3 (150-450); RBC Distribution Width SD 38.4 fl (35.1-43.9); White Blood Count 4.1 K/mm3 (4.4-11.0)
[2020-02-28 10:28] LABS: Anion Gap 1 (5-15); BUN 11 mg/dL (7-18); BUN/Creat Ratio 13.7 RATIO (10-20); Calcium,Total 8.8 mg/dL (8.5-10.1); Chloride 106 mmol/L (98-107); EST Glomerular Filtration Rate 120 mL/min (>60); Est Glom Filt Rate - Afr Amer 146 mL/min (>60); Estimated Creatinine Clearance 129.94 ml/min; Glucose 74 mg/dL (74-106); Potassium 4.3 mmol/L (3.5-5.1); Sodium Level 139 mmol/L (136-145)
[2020-02-28 11:27] LABS: Amphetamine Urine VISTA NEGATIVE (<1000 ng/mL); Barbiturate Urine VISTA NEGATIVE (< 200 ng/mL); Benzodiazepine Urine VISTA NEGATIVE (< 200 ng/mL); Cocaine Urine VISTA NEGATIVE (< 300 ng/mL); Ecstacy Urine VISTA NEGATIVE (< 500 ng/mL); Methadone Urine VISTA NEGATIVE (< 300 ng/mL); PCP Urine VISTA NEGATIVE (< 25 ng/mL); THC Urine VISTA NEGATIVE (< 50 ng/mL); Vista UDS pH Range 6
[2020-02-28] MEDS: LORazepam 2 MG/ML Syringe 1 MG IV (11:46)
[2020-02-28] MEDS: 0.9% Normal Saline 1,000 ML 999 ML IV (12:21)
--- NOTE | 2020-02-28 13:20 | HP.PCM_ITS ---
Problem List (1) Acute opioid withdrawal Status: Acute (2) Nicotine dependence Status: Chronic Qualifiers: Nicotine product type: cigarettes Substance use status: unspecified nicotine-induced disorder Qualified Code(s): F17.219 - Nicotine dependence, cigarettes, with unspecified nicotine-induced disorders (3) Polysubstance (including opioids) dependence w/o physiol dependence Status: Chronic History of Present Illness Date of Admission: 02/28/20 Chief Complaint: Acute opioid withdrawal The patient is a 30 year old M with past medical history of polysubstance use disorder, patient uses heroin, fentanyl and methamphetamines was in requesting for medical stabilization. Patient was discharged from the hospital 11 days ago for similar presentation. He stated that he relapsed immediately following discharge. He is about 3 g of heroin. Last use steroid 1 day prior to admission. He complains of nausea and generalized pain but no vomiting or fever or chills. Vitals in the ED showed temperature of 97.5F, heart rate 65 blood pressure 86/54, respiratory rate was 14, SPO2 was 98% on room air. His WBC count was 4.1, hemoglobin 15.3, platelet count of 165, BMP was unremarkable. Urine tox was also unremarkable. Past Medical History Past Medical History (Chronic Problems): Chronic Problems Nicotine dependence (Chronic) Polysubstance (including opioids) dependence w/o physiol dependence (Chronic) Allergies No Known Allergies Allergy (Verified 02/28/20 09:43) Home Medications: Ambulatory Orders Medication Instructions Recorded NK 02/28/20 Surgical History: arthroscopy, knee - Sepsis post right knee meniscal repair x2, torn ACLS x2, total hip arthroplasty - Status post left hip surgery during childhood Psychiatric History: No pertinent psych hx Lives: With Family Smoking Status: Current every day smoker Tobacco Use: Cigarettes Alcohol: Occasional Drugs: Heroin - *Family History Paternal History Items: No pertinent history Maternal History Items: - - Polysubstance use disorder Review of Systems Constitutional: Reports: Anorexia, Malaise, Weakness. Denies: Chills, Fever, Weight Change, Fatigue Eyes: Denies: Blurred vision, Cataracts, Conjunctivae Inflammation, Pain, Redness, Vision Change HEENT: Denies: Difficulty Hearing, Difficulty Swallowing, Head Aches, Hearing Changes, Nasal bleeding, Sinus Congestion, Sinus Drainage Cardiovascular: Denies: Chest Pain, Claudication, Orthopnea, Palpitations, Paroxysmal Noc. Dyspnea Respiratory: Denies: Cough, Hemoptysis, Shortness of breath at rest, Shortness of breath upon exertion, Sputum production Gastrointestinal: Reports: Nausea. Denies: Abdominal Pain, Diarrhea, Hematemesis, Vomiting Genitourinary: Denies: Dysuria, Frequency, Incontinence, Nocturia Musculoskeletal: Denies: Joint Pain, Joint stiffness, Joint Tenderness Skin: Denies: Rash, Wounds Neurological: Denies: Numbness, Tingling, Focal weakness Psychiatric: Denies: Anxiety, Depression, Homicidal Ideations, Suicidal Ideations Hematologic/ Lymphatic: Denies: Easy Bruising, Easy Bleeding VTE Information - Inpt Only VTE Present on Admission: No VTE Pharm Prophylaxis ordered?: Yes Patient Problems: Active and Suspected Problems Acute opioid withdrawal (Acute) - Physical Exam Vitals/I&O's: Vital Signs Temp Pulse Resp BP Pulse Ox 97.5 F L 65 14 103/50 L 98 02/28/20 11:57 02/28/20 11:57 02/28/20 11:57 02/28/20 12:17 02/28/20 11:57 Oxygen Delivery Method Room Air Weight: 66.7 kg Body Mass Index (BMI) 21.1 General: Alert, Oriented x3, Cooperative, No apparent distress HEENT: Atraumatic, PERRLA, EOMI, Normocephalic, - - scabs on face from healed cellulitis Oral: Moist Mucosa Neck: Supple Lungs: Clear to auscultation, Normal air movement Cardiovascular: Regular rate, Regular Rhythm, Normal S1, Normal S2, No murmurs Abdomen: Bowel Sounds Present, Soft, Non Tender, Non-Distended, No Hepato- splenomegaly Extremities: No edema Skin: - - healed scabs on face and anterior chest Musculoskeletal: No Tenderness to Palpation of Joints or Extremities Lymphatic: No Cervical, Supraclavicular, or Inguinal Adenopathy Neurological: Cranial nerves II-XII grossly intact, Neuro grossly intact Psych/Mental Status: Normal Affect, Appropriate Laboratory Results 02/28/20 10:00: WBC 4.1 L, RBC 5.20, Hgb 15.3, Hct 45.3, MCV 87.1, MCH 29.4, MCHC 33.8, RDW Std Deviation 38.4, RDW Coeff of Ganga 12.0, Plt Count 165, MPV 9.2, Immature Gran % (Auto) 0.500, Neut % (Auto) 55.5, Lymph % (Auto) 25.4, [place] % (Auto) 15.2 H, Eos % (Auto) 2.9, Baso % (Auto) 0.5, Absolute Neuts (auto) 2.3, Absolute Lymphs (auto) 1.04, Nucleated RBC % 0 02/28/20 10:00: Sodium 139, Potassium 4.3, Chloride 106, Carbon Dioxide 32.0, Anion Gap 1 L, BUN 11, Creatinine 0.80, Estim Creat Clear Calc 129.94, Est GFR (MDRD) Af Amer 146, Est GFR (MDRD) Non-Af 120, BUN/Creatinine Ratio 13.7, Glucose 74, Calcium 8.8 02/28/20 10:00: Ethyl Alcohol 6.0 02/28/20 11:08: Urine Opiates Screen NEGATIVE, Urine Methadone Screen NEGATIVE, Ur Barbiturates Screen NEGATIVE, Ur Phencyclidine Scrn NEGATIVE, Ur Amphetamines Screen NEGATIVE, U Methamphetamin-MDMA NEGATIVE, U Benzodiazepines Scrn NEGATIVE, Urine Cocaine Screen NEGATIVE, U Cannabinoids Screen NEGATIVE, Ur Drug Screen Comment Current Medications Acetaminophen (Tylenol) 500 mg PO Q4H PRN PRN PRN Reason: Temp > 100.4 F Bisacodyl (Dulcolax) 10 mg RECTAL DAILY PRN PRN Reason: Constipation Buprenorphine HCl (Buprenorphine Hcl) 0 mg SL Q8H JUSTINO; Taper Stop: 03/02/20 11:44 Clonidine (Catapres) 0.1 mg PO Q8H PRN PRN PRN Reason: RESTLESSNESS Dicyclomine HCl (Bentyl) 20 mg PO Q6H PRN PRN PRN Reason: Abdominal Discomfort Gabapentin (Neurontin) 300 mg PO Q8H PRN PRN PRN Reason: moderate to severe anxiety Gabapentin (Neurontin) 300 mg PO Q8H PRN PRN PRN Reason: moderate to severe anxiety Hydroxyzine Pamoate (Vistaril Pamoate Capsule) 50 mg PO Q6H PRN PRN PRN Reason: mild anxiety Ibuprofen (Motrin) 600 mg PO Q8H PRN PRN PRN Reason: Pain Score 1-10/10 Loperamide HCl (Imodium) 2 mg PO Q4H PRN PRN PRN Reason: LOOSE STOOLS Methocarbamol (Methocarbamol) 1,500 mg PO Q6H PRN PRN PRN Reason: MUSCLE SPASM Nicotine (Nicoderm Cq (Pbkc)) 21 mg TRANSDERM. DAILY JUSTINO Nicotine Polacrilex (Rugby Nicotine (Pbkc)) 4 mg PO Q2H PRN PRN PRN Reason: Nicotine Craving Nutritional Formula (Lactose Free) (Ensure Enlive) 120 ml PO 4X/DAY JUSTINO Ondansetron HCl (Zofran) 8 mg PO Q8H PRN PRN PRN Reason: NAUSEA Senna (Senokot) 2 tablet PO QHS PRN PRN Reason: Constipation Trazodone HCl (Desyrel) 100 mg PO QHS PRN PRN PRN Reason: INSOMNIA Assessment/Plan All Active Problems Acute opioid withdrawal (Acute) Cellulitis (Acute) 1. Acute opioid withdrawal, patient with chronic opioid use Last use was 24 hours prior to admission Will continue to monitor on the opiate withdrawal protocol 2. Nicotine dependence, on replacement 3. DVT ppx- low risk Inpatient E&M: 40141 Init Hosp L2
[2020-02-28] MEDS: Methocarbamol 750 MG Tablet 1500 MG PO ×2 (13:46→22:50)
[2020-02-28] MEDS: Dicyclomine 10 MG Capsule 20 MG PO ×2 (13:46→22:50)
[2020-02-28] MEDS: hydrOXYzine PAM 25 MG Capsule 50 MG PO ×2 (13:46→22:48)
--- NOTE | 2020-02-28 14:45 | CASEMGMT ---
Social Work Note Pt is RAMP pt, new admit today. SW placed a call to Meeta at [facility] and left message that pt will need to be seen. Radha Murdock RN ELIGIBILITY, POST DOCTORAL FELLOW
[2020-02-28] MEDS: Buprenorphine HCl 2 MG TAB.SUBL SL ×2 (14:57→22:48)
[2020-02-28 15:26] LABS: AST(SGOT) 32 U/L (15-37); Alanine Aminotransfer ALT/SGPT 56 U/L (16-61); Albumin, Serum 3.5 g/dL (3.2-5.0); Alkaline Phosphatase 69 U/L (45-117); Bilirubin, Direct 0.11 mg/dL (0.00-0.30); Globulin 3.7 g/dL (2.2-4.2); Protein, Total 7.2 g/dL (6.4-8.2)
[2020-02-28] MEDS: Gabapentin 300 MG Capsule PO (17:05)
[2020-02-28] MEDS: traZODone 100 MG Tablet PO (22:50)
[2020-02-29 05:48] VITALS: BP 107/54; PULSE 72; RESP 16; TEMP 36.7; O2SAT 98
[2020-02-29] MEDS: hydrOXYzine PAM 25 MG Capsule 50 MG PO ×2 (05:54→12:07)
[2020-02-29] MEDS: Methocarbamol 750 MG Tablet 1500 MG PO ×3 (05:55→19:48)
[2020-02-29] MEDS: Buprenorphine HCl 2 MG TAB.SUBL SL ×3 (05:55→21:54)
[2020-02-29] MEDS: Dicyclomine 10 MG Capsule 20 MG PO ×2 (05:55→12:07)
--- NOTE | 2020-02-29 09:43 | PN_ITS ---
Patient Problems: Active and Suspected Problems Acute opioid withdrawal (Acute) Subjective: Patient seen and examined. He had no complaints this morning was resting comfortably. He is on buprenorphine withdrawal protocol. Review systems otherwise negative. Labs and vitals reviewed. Vitals/I&O's: Vital Signs Temp Pulse Resp BP Pulse Ox 98.1 F 72 16 107/54 L 98 02/29/20 05:48 02/29/20 05:48 02/29/20 05:48 02/29/20 05:48 02/29/20 05:48 Oxygen Delivery Method Room Air Weight: 147 lb 0.773 oz Body Mass Index (BMI) 21.1 Intake and Output for Last 24 Hours 02/27/20 02/28/20 02/29/20 23:59 23:59 23:59 Intake Total 1300 / 1600 300 / 300 Balance 1300 / 1600 300 / 300 General: Alert, Oriented x3, Cooperative, No apparent distress HEENT: Atraumatic, PERRLA, EOMI, Normocephalic Oral: Moist Mucosa Neck: Supple, No JVD, Negative Carotid Bruits Lungs: Clear to auscultation, Normal air movement, No rhonchi, No wheeze Cardiovascular: Regular rate, Regular Rhythm, Normal S1, Normal S2, No murmurs Abdomen: Bowel Sounds Present, Soft, Non Tender, Non-Distended, No Hepato- splenomegaly Extremities: No clubbing, No cyanosis, No edema, Capillary Refill Less than 3 Seconds Skin: - - superficial healing scabs over face and back Musculoskeletal: No Tenderness to Palpation of Joints or Extremities Lymphatic: No Cervical, Supraclavicular, or Inguinal Adenopathy Neurological: Cranial nerves II-XII grossly intact, Neuro grossly intact, Motor Exam 5/5 strength throughout Psych/Mental Status: Normal Affect, Appropriate, Alert and oriented to time, place, person, mood and affect Laboratory Results 02/28/20 10:00: WBC 4.1 L, RBC 5.20, Hgb 15.3, Hct 45.3, MCV 87.1, MCH 29.4, MCHC 33.8, RDW Std Deviation 38.4, RDW Coeff of [place]anga 12.0, Plt Count 165, MPV 9.2, Immature Gran % (Auto) 0.500, Neut % (Auto) 55.5, Lymph % (Auto) 25.4, [place] % (Auto) 15.2 H, Eos % (Auto) 2.9, Baso % (Auto) 0.5, Absolute Neuts (auto) 2.3, Absolute Lymphs (auto) 1.04, Nucleated RBC % 0 02/28/20 10:00: Sodium 139, Potassium 4.3, Chloride 106, Carbon Dioxide 32.0, Anion Gap 1 L, BUN 11, Creatinine 0.80, Estim Creat Clear Calc 129.94, Est GFR (MDRD) Af Amer 146, Est GFR (MDRD) Non-Af 120, BUN/Creatinine Ratio 13.7, Glucose 74, Calcium 8.8 02/28/20 10:00: Ethyl Alcohol 6.0 02/28/20 10:00: Total Bilirubin 0.40, Direct Bilirubin 0.11, AST 32, ALT 56, Alkaline Phosphatase 69, Total Protein 7.2, Albumin 3.5, Globulin 3.7 02/28/20 11:08: Urine Opiates Screen NEGATIVE, Urine Methadone Screen NEGATIVE, Ur Barbiturates Screen NEGATIVE, Ur Phencyclidine Scrn NEGATIVE, Ur Amphetamines Screen NEGATIVE, U Methamphetamin-MDMA NEGATIVE, U Benzodiazepines Scrn NEGATIVE, Urine Cocaine Screen NEGATIVE, U Cannabinoids Screen NEGATIVE, Ur Drug Screen Comment Current Medications Acetaminophen (Tylenol) 500 mg PO Q4H PRN PRN PRN Reason: Temp > 100.4 F Bisacodyl (Dulcolax) 10 mg RECTAL DAILY PRN PRN Reason: Constipation Buprenorphine HCl (Buprenorphine Hcl) 4 mg SL Q8H [facility]; Taper Stop: 03/02/20 13:59 Last Admin: 02/29/20 05:55 Dose: 4 mg Documented by: Clonidine (Catapres) 0.1 mg PO Q8H PRN PRN PRN Reason: RESTLESSNESS Dicyclomine HCl (Bentyl) 20 mg PO Q6H PRN PRN PRN Reason: Abdominal Discomfort Last Admin: 02/29/20 05:55 Dose: 20 mg Documented by: Gabapentin (Neurontin) 300 mg PO Q8H PRN PRN PRN Reason: moderate to severe anxiety Last Admin: 02/28/20 17:05 Dose: 300 mg Documented by: Hydroxyzine Pamoate (Vistaril Pamoate Capsule) 50 mg PO Q6H PRN PRN PRN Reason: mild anxiety Last Admin: 02/29/20 05:54 Dose: 50 mg Documented by: Ibuprofen (Motrin) 600 mg PO Q8H PRN PRN PRN Reason: Pain Score 1-10/10 Loperamide HCl (Imodium) 2 mg PO Q4H PRN PRN PRN Reason: LOOSE STOOLS Methocarbamol (Methocarbamol) 1,500 mg PO Q6H PRN PRN PRN Reason: MUSCLE SPASM Last Admin: 02/29/20 05:55 Dose: 1,500 mg Documented by: Nicotine (Nicoderm Cq ([facility])) 21 mg TRANSDERM. DAILY [facility] Last Admin: 02/28/20 15:01 Dose: 21 mg Documented by: Nicotine Polacrilex ([place]ugby Nicotine ([facility])) 4 mg PO Q2H PRN PRN PRN Reason: Nicotine Craving Nutritional Formula (Lactose Free) (Ensure Enlive) 120 ml PO 4X/DAY [facility] Last Admin: 02/28/20 22:47 Dose: 120 ml Documented by: Ondansetron HCl (Zofran) 8 mg PO Q8H PRN PRN PRN Reason: NAUSEA Senna (Senokot) 2 tablet PO QHS PRN PRN Reason: Constipation Trazodone HCl (Desyrel) 100 mg PO QHS PRN PRN PRN Reason: INSOMNIA Last Admin: 02/28/20 22:50 Dose: 100 mg Documented by: STROKE Vital Signs/Narrative: Vital Signs Temp Pulse Resp BP Pulse Ox 02/29/20 05:48 98.1 F 72 16 107/54 L 98 Medical Necessity - Tobacco Use Smoking Status: Current every day smoker Tobacco Use: Cigarettes Assessment/Plan All Active Problems Acute opioid withdrawal (Acute) Cellulitis (Acute) 1. Acute opioid withdrawal * on buprenorphine withdrawal protocol * monitor CINA score * * 2. Nicotine dependence: on nicotine patch DVT prophylaxis: low risk, encourage ambulation Inpatient E&M: 47585 Subs Hosp L2
[2020-02-29 11:09] VITALS: BP 98/48; PULSE 67; RESP 16; TEMP 36; O2SAT 98
[2020-02-29] MEDS: Gabapentin 300 MG Capsule PO (17:03)
[2020-02-29 17:08] VITALS: BP 97/65; PULSE 61; RESP 16; TEMP 36.1; O2SAT 100
[2020-02-29] MEDS: cloNIDine HCl 0.1 MG Tablet PO (19:48)
[2020-02-29 23:00] VITALS: BP 100/52; PULSE 68; RESP 16; TEMP 37.2; O2SAT 98
[2020-03-01 05:00] VITALS: BP 102/48; PULSE 65; RESP 16; TEMP 36.8; O2SAT 99
[2020-03-01] MEDS: hydrOXYzine PAM 25 MG Capsule 50 MG PO ×3 (05:15→20:47)
[2020-03-01] MEDS: Buprenorphine HCl 2 MG TAB.SUBL SL ×2 (05:15→13:41)
[2020-03-01] MEDS: Methocarbamol 750 MG Tablet 1500 MG PO ×2 (05:15→18:26)
[2020-03-01] MEDS: Ibuprofen 600 MG Tablet PO (09:50)
[2020-03-01] MEDS: cloNIDine HCl 0.1 MG Tablet PO ×2 (09:50→18:26)
[2020-03-01 10:11] VITALS: BP 108/65; PULSE 73; RESP 18; TEMP 36.7; O2SAT 99
[2020-03-01] MEDS: Acetaminophen 500 MG Tablet PO (10:48)
[2020-03-01] MEDS: Gabapentin 300 MG Capsule PO (10:49)
--- NOTE | 2020-03-01 10:57 | PCM.PN.HOSP ---
Patient Problems: Active and Suspected Problems Acute opioid withdrawal (Acute) Subjective: Patient seen and examined. He denies of feeling restless today. Review of systems otherwise negative. Vitals/I&O's: Vital Signs Temp Pulse Resp BP Pulse Ox 98.1 F 73 18 108/65 99 03/01/20 10:11 03/01/20 10:11 03/01/20 10:11 03/01/20 10:11 03/01/20 10:11 Oxygen Delivery Method Room Air Weight: 147 lb 0.773 oz Body Mass Index (BMI) 21.1 Intake and Output for Last 24 Hours 02/28/20 02/29/20 03/01/20 23:59 23:59 23:59 Intake Total 1300 / 1600 1080 / 1560 730 / 730 Balance 1300 / 1600 1080 / 1560 730 / 730 General: Alert, Oriented x3, Cooperative, No apparent distress HEENT: Atraumatic, PERRLA, EOMI, Normocephalic Oral: Moist Mucosa Neck: Supple, No JVD, Negative Carotid Bruits Lungs: Clear to auscultation, Normal air movement, No rhonchi, No wheeze Cardiovascular: Regular rate, Regular Rhythm, Normal S1, Normal S2, No murmurs Abdomen: Bowel Sounds Present, Soft, Non Tender, Non-Distended, No Hepato-splenomegaly Extremities: No clubbing, No cyanosis, No edema, Capillary Refill Less than 3 Seconds Skin: - - superficial healing scabs over face and back Musculoskeletal: No Tenderness to Palpation of Joints or Extremities Lymphatic: No Cervical, Supraclavicular, or Inguinal Adenopathy Neurological: Cranial nerves II-XII grossly intact, Neuro grossly intact, Motor Exam 5/5 strength throughout Psych/Mental Status: Normal Affect, Appropriate, Alert and oriented to time, place, person, mood and affect Current Medications Acetaminophen (Tylenol) 500 mg PO Q4H PRN PRN PRN Reason: Temp > 100.4 F Last Admin: 03/01/20 10:48 Dose: 500 mg Documented by: Bisacodyl (Dulcolax) 10 mg RECTAL DAILY PRN PRN Reason: Constipation Buprenorphine HCl (Buprenorphine Hcl) 2 mg SL Q8H JUSTINO; Taper Stop: 03/02/20 13:59 Last Admin: 03/01/20 05:15 Dose: 2 mg Documented by: Clonidine (Catapres) 0.1 mg PO Q8H PRN PRN PRN Reason: RESTLESSNESS Last Admin: 03/01/20 09:50 Dose: 0.1 mg Documented by: Dicyclomine HCl (Bentyl) 20 mg PO Q6H PRN PRN PRN Reason: Abdominal Discomfort Last Admin: 02/29/20 12:07 Dose: 20 mg Documented by: Gabapentin (Neurontin) 300 mg PO Q8H PRN PRN PRN Reason: moderate to severe anxiety Last Admin: 03/01/20 10:49 Dose: 300 mg Documented by: Hydroxyzine Pamoate (Vistaril Pamoate Capsule) 50 mg PO Q6H PRN PRN PRN Reason: mild anxiety Last Admin: 03/01/20 10:48 Dose: 50 mg Documented by: Ibuprofen (Motrin) 600 mg PO Q8H PRN PRN PRN Reason: Pain Score 1-10/10 Last Admin: 03/01/20 09:50 Dose: 600 mg Documented by: Loperamide HCl (Imodium) 2 mg PO Q4H PRN PRN PRN Reason: LOOSE STOOLS Methocarbamol (Methocarbamol) 1,500 mg PO Q6H PRN PRN PRN Reason: MUSCLE SPASM Last Admin: 03/01/20 05:15 Dose: 1,500 mg Documented by: Nicotine (Nicoderm Cq (Pbkc)) 21 mg TRANSDERM. DAILY [facility] Last Admin: 03/01/20 09:50 Dose: 21 mg Documented by: Nicotine Polacrilex (Rugby Nicotine (Pbkc)) 4 mg PO Q2H PRN PRN PRN Reason: Nicotine Craving Nutritional Formula (Lactose Free) (Ensure Enlive) 120 ml PO 4X/DAY [facility] Last Admin: 03/01/20 09:50 Dose: 120 ml Documented by: Ondansetron HCl (Zofran) 8 mg PO Q8H PRN PRN PRN Reason: NAUSEA Senna (Senokot) 2 tablet PO QHS PRN PRN Reason: Constipation Trazodone HCl (Desyrel) 100 mg PO QHS PRN PRN PRN Reason: INSOMNIA Last Admin: 02/28/20 22:50 Dose: 100 mg Documented by: STROKE Vital Signs/Narrative: Vital Signs Temp Pulse Resp BP Pulse Ox 03/01/20 10:11 98.1 F 73 18 108/65 99 Medical Necessity - Tobacco Use Smoking Status: Current every day smoker Tobacco Use: Cigarettes Assessment/Plan All Active Problems Acute opioid withdrawal (Acute) Cellulitis (Acute) 1. Acute opioid withdrawal on buprenorphine withdrawal protocol monitor CINA score 2. Nicotine dependence: on nicotine patch DVT prophylaxis: low risk, encourage ambulation Disposition: for DC tomorrow. Case management to help with discharge planning Inpatient E&M: 05892 Subs Hosp L2
[2020-03-01 14:00] VITALS: BP 105/66; PULSE 80; RESP 18; TEMP 36.7; O2SAT 96
[2020-03-01] MEDS: Dicyclomine 10 MG Capsule 20 MG PO (18:26)
[2020-03-01] MEDS: traZODone 100 MG Tablet PO (20:47)
[2020-03-01] MEDS: Ondansetron 8 MG Tablet PO (20:49)
[2020-03-01 21:00] VITALS: BP 108/47; PULSE 56; RESP 16; TEMP 37; O2SAT 96
[2020-03-02] MEDS: Buprenorphine HCl 2 MG TAB.SUBL SL (01:59)
[2020-03-02] MEDS: Gabapentin 300 MG Capsule PO (02:05)
[2020-03-02 03:00] VITALS: BP 99/46; PULSE 51; RESP 16; TEMP 36.7; O2SAT 99
[2020-03-02 09:30] VITALS: BP 101/51; PULSE 64; RESP 16; TEMP 36.8; O2SAT 100
[2020-03-02] MEDS: Ibuprofen 600 MG Tablet PO (09:32)
[2020-03-02] MEDS: hydrOXYzine PAM 25 MG Capsule 50 MG PO (09:32)
[2020-03-02] MEDS: Dicyclomine 10 MG Capsule 20 MG PO (09:32)
--- NOTE | 2020-03-02 10:05 | CASEMGMT ---
Social Work Note Pt is RAMP pt. ELINA spoke with Anne from [facility]. Anne states plan is for pt to admit to [facility] today and [facility] will be at [facility] around 12:00pm to transport pt. Radha Murdock [employer] ATTEND[employer], [employer]
--- NOTE | 2020-03-02 10:11 | DCINST_ITS ---
- Discharge Diagnoses Current Active Problems: Current Active and Chronic Problems Acute opioid withdrawal (Acute) Polysubstance (including opioids) dependence w/o physiol dependence (Chronic) You will use the following diet at home:: No restrictions Your food should be the consistency of: Regular Your liquids should be the consistency of: Regular/Thin Discharge Activity: Return to Normal Activity Weight Bearing Status: Weight bearing as tolerated Call your doctor if you observe: Fever of 101 or Higher, Increased palpitations (irregular heartbeat) Instructions: ED Withdrawal Narcotic, ED Abuse Drug Narcotic Sedative Rx Additional Instructions: follow up with rehab facility on outpatient basis Allergies/Adverse Reactions: Allergies No Known Allergies Allergy (Verified 02/28/20 09:43) Medications to take at Discharge NK 02/28/20 Primary Care Physician: Care Physician,No Primary [Primary Care Provider] - Test Results: Test results from this visit will be discussed in further detail at your follow- up appointment, if applicable. Please Follow Up With: Aldo Villanueva MD When: 1-2 weeks to establish PCP relationship Proposed Discharge Date: 03/02/20
--- NOTE | 2020-03-02 10:13 | DS.PCM_ITS ---
Discharge Date and Diagnosis Date of Admission: 02/28/20 Date of Discharge: 03/02/20 - Primary Discharge Diagnosis Acute Problems: Active Problems Acute opioid withdrawal (Acute) - Secondary Discharge Diagnosis Chronic Problems: Chronic Problems Nicotine dependence (Chronic) Polysubstance (including opioids) dependence w/o physiol dependence (Chronic) Hospital Course and Treatment Operations: None Procedures: None Summary of Care Provided: The patient is a 30 year old M with a past medical history of polysubstance use disorder including heroin, fentanyl and methamphetamines. He was admitted through the ED on 02/28/2020 for acute opiate withdrawal. He had been discharged in the hospital about 11 days prior to this admission for similar symptoms but states he relapsed immediately after discharge. He had been using about 3 g of heroin daily with the last use being 1 day prior to admission. On admission, he complained of nausea and generalized pain but no vomiting or fever or chills. He was admitted and managed for acute opioid withdrawal. He was started on buprenorphine withdrawal protocol. Patient remained stable and tolerated a 3- day detox process well. He had wanted to follow-up with [facility] rehab facility but on day of discharge, 03/02/2020, patient refused to meet with a [facility] enrollment eligibility representative and opted to go straight home and to follow-up with them at the time of his choosing. He was discharged home on 03/02/2020. Patient seen and examined prior to discharge. He had no complaints and felt well. Review of symptoms otherwise negative. Vitals reviewed. Home medication reviewed and reconciled. [] O/E: Vital Signs Temp Pulse Resp BP Pulse Ox 98.3 F 64 16 101/51 L 100 03/02/20 09:30 03/02/20 09:30 03/02/20 09:30 03/02/20 09:30 03/02/20 09:30 General: Alert, Oriented x3, Cooperative, No apparent distress HEENT: Atraumatic, PERRLA, EOMI, Normocephalic Oral: Moist Mucosa Neck: Supple, No JVD, Negative Carotid Bruits Lungs: Clear to auscultation, Normal air movement, No rhonchi, No wheeze Cardiovascular: Regular rate, Regular Rhythm, Normal S1, Normal S2, No murmurs Abdomen: Bowel Sounds Present, Soft, Non Tender, Non-Distended, No Hepato- splenomegaly Extremities: No clubbing, No cyanosis, No edema, Capillary Refill Less than 3 Seconds Skin: - - superficial healing scabs over face and back Musculoskeletal: No Tenderness to Palpation of Joints or Extremities Lymphatic: No Cervical, Supraclavicular, or Inguinal Adenopathy Neurological: Cranial nerves II-XII grossly intact, Neuro grossly intact, Motor Exam 5/5 strength throughout Psych/Mental Status: Normal Affect, Appropriate, Alert and oriented to time, place, person, mood and affect Plan is for discharge home today. - Physical Exam Vitals/I&O's: Vital Signs Temp Pulse Resp BP Pulse Ox 98.3 F 64 16 101/51 L 100 03/02/20 09:30 03/02/20 09:30 03/02/20 09:30 03/02/20 09:30 03/02/20 09:30 Oxygen Delivery Method Room Air Weight: 147 lb 0.773 oz Body Mass Index (BMI) 21.1 Intake and Output for Last 24 Hours 02/29/20 03/01/20 03/02/20 23:59 23:59 23:59 Intake Total 1080 / 1560 1890 / 1890 250 / 250 Balance 1080 / 1560 1890 / 1890 250 / 250 Current Medications Acetaminophen (Tylenol) 500 mg PO Q4H PRN PRN PRN Reason: Temp > 100.4 F Last Admin: 03/01/20 10:48 Dose: 500 mg Documented by: Bisacodyl (Dulcolax) 10 mg RECTAL DAILY PRN PRN Reason: Constipation Buprenorphine HCl (Buprenorphine Hcl) 2 mg SL Q12H JUSTINO; Taper Stop: 03/02/20 13:59 Last Admin: 03/02/20 01:59 Dose: 2 mg Documented by: Clonidine (Catapres) 0.1 mg PO Q8H PRN PRN PRN Reason: RESTLESSNESS Last Admin: 03/01/20 18:26 Dose: 0.1 mg Documented by: Dicyclomine HCl (Bentyl) 20 mg PO Q6H PRN PRN PRN Reason: Abdominal Discomfort Last Admin: 03/02/20 09:32 Dose: 20 mg Documented by: Gabapentin (Neurontin) 300 mg PO Q8H PRN PRN PRN Reason: moderate to severe anxiety Last Admin: 03/02/20 02:05 Dose: 300 mg Documented by: Hydroxyzine Pamoate (Vistaril Pamoate Capsule) 50 mg PO Q6H PRN PRN PRN Reason: mild anxiety Last Admin: 03/02/20 09:32 Dose: 50 mg Documented by: Ibuprofen (Motrin) 600 mg PO Q8H PRN PRN PRN Reason: Pain Score 1-10/10 Last Admin: 03/02/20 09:32 Dose: 600 mg Documented by: Loperamide HCl (Imodium) 2 mg PO Q4H PRN PRN PRN Reason: LOOSE STOOLS Methocarbamol (Methocarbamol) 1,500 mg PO Q6H PRN PRN PRN Reason: MUSCLE SPASM Last Admin: 03/01/20 18:26 Dose: 1,500 mg Documented by: Nicotine (Nicoderm Cq (kc)) [address] [facility] Last Admin: 03/02/20 09:26 Dose: Not Given Documented by: Nicotine Polacrilex (Rugby Nicotine (Pbkc)) 4 mg PO Q2H PRN PRN PRN Reason: Nicotine Craving Nutritional Formula (Lactose Free) (Ensure Enlive) 120 ml PO 4X/DAY [facility] Last Admin: 03/02/20 09:33 Dose: Not Given Documented by: Ondansetron HCl (Zofran) 8 mg PO Q8H PRN PRN PRN Reason: NAUSEA Last Admin: 03/01/20 20:49 Dose: 8 mg Documented by: Senna (Senokot) 2 tablet PO QHS PRN PRN Reason: Constipation Trazodone HCl (Desyrel) 100 mg PO QHS PRN PRN PRN Reason: INSOMNIA Last Admin: 03/01/20 20:47 Dose: 100 mg Documented by: Discharge Diet: No Restrictions Discharge Activity: Return to Normal Activity Weight Bearing Status: Weight bearing as tolerated Call your doctor if you observe: Fever of 101 or Higher, Increased palpitations (irregular heartbeat) Home Medications: Medications to take at Discharge 02/28/20 Primary Care Physician: Care Physician,No Primary [Primary Care Provider] - Please Follow Up With: Aldo Villanueva MD When: 1-2 weeks to establish PCP relationship Patient Instructions: ED Withdrawal Narcotic, ED Abuse Drug Narcotic Sedative Rx Disposition: Home Minutes spent on discharge:: 40 Patient Condition:: Stable Medical Necessity - Tobacco Use Smoking Status: Current every day smoker Tobacco Use: Cigarettes Meaningful Use Info Meaningful Use Diagnoses (Choose all that apply): None applicable Inpatient E&M: 40621 Disch Hosp
--- NOTE | 2020-03-02 10:41 | NURSING ---
Patient called out stating that he is ready to leave. Discussed with primary nurse Stephanie and case management. DC plan was for today but patient was to be picked up by [facility] at around 1200. Relayed this information to patient but patient politely declined. States that he wants to leave and no longer is interested in the residential plan discussed with [facility]. Marisol, charge nurse, notified Dr Mai of patient deciding not to go forward with intended discharge plan. Stephanie RN in room also discussing discharge with patient. Patient provided access to personal belongings.
== END 2020-03-02 10:50 | disposition home or self-care (01) | DRG 897 ==
LOC: ED 11:47 → MS3 02-29 07:11
PROVIDERS: Admitting Provider Internal Medicine; Emergency Provider Physician Assistant Medical; Visit Provider Student in an Organized Health Care Education/Training Program
DX: F11.23 Opioid dependence with withdrawal (principal); F17.210 Nicotine dependence, cigarettes, uncomplicated; Z96.649 Presence of unspecified artificial hip joint; F15.20 Other stimulant dependence, uncomplicated
CPT/HCPCS: 80048; 80076; 80307; 80320; 85025; 97802; 99218; 99283; 99406; J7030; A4216; G0378; G0480

== ENCOUNTER 2020-03-08 18:00 | Inpatient (IN) | payer MEDICAID, SELFPAY ==
[2020-02-28 12:52] VITALS: BMI 21.1
[2020-03-08 18:03] VITALS: BP 139/88; PULSE 104; RESP 22; TEMP 36.8; O2SAT 99; BMI 21.0
[2020-03-08 19:59] VITALS: BP 139/88; PULSE 104; RESP 22; TEMP 36.8; O2SAT 99
--- NOTE | 2020-03-08 20:04 | PCM.HP.STD ---
Problem List (1) Acute opioid withdrawal Status: Acute (2) Nicotine dependence Status: Chronic Qualifiers: (3) Polysubstance (including opioids) dependence w/o physiol dependence Status: Chronic History of Present Illness Date of Admission: 03/08/20 Chief Complaint: Opioid use and dependence The patient is a 30 year old M with history of polysubstance use including opioids, IV heroine came to ED for detox. Patient has been using IV heroin, IV fentanyl methamphetamine since age of 16 along with smoking cigarettes. Uses about 3 g of IV heroin, last use 2 hours prior to admission about 6 PM on 03/08/2020. He is having muscle aches and pain over neck and shoulders. Denies nausea, vomiting, abdominal cramps numbness or tingling, hallucination or seizures. Patient was admitted twice in the month of February 2020 for acute opioid withdrawal. During last time, after discharge patient to use the drug and then went to [facility] inpatient rehab next day but he was denied as drugs/opioids, needles and syringes were found in the patient's belongings. Patient still want to get out on this substance use. Patient was using benzodiazepine, Ativan 1 mg 3 times a day about 3 to 4 weeks ago. Currently he is not persistently using it although he had 0.5 mg Xanax 2 days ago. Labs are ordered in the ER. Past Medical History Past Medical History (Chronic Problems): Chronic Problems Nicotine dependence (Chronic) Polysubstance (including opioids) dependence w/o physiol dependence (Chronic) Allergies No Known Allergies Allergy (Verified 03/08/20 18:03) Home Medications: Ambulatory Orders Medication Instructions Recorded NK 02/28/20 Surgical History: arthroscopy, knee - Sepsis post right knee meniscal repair x2, torn ACLS x2, total hip arthroplasty - Status post left hip surgery during childhood Psychiatric History: No pertinent psych hx Smoking Status: Current every day smoker Tobacco Use: Cigarettes - *Family History Paternal History Items: No pertinent history Maternal History Items: - - Polysubstance use disorder His father does not have a history of substance use or psychiatric history but as a matter fact he is healthy. Review of Systems Constitutional: Denies: Chills, Fever, Weight Change HEENT: Denies: Head Aches, Sinus Congestion, Sinus Drainage Cardiovascular: Denies: Chest Pain, Palpitations Respiratory: Denies: Cough, Shortness of breath at rest, Sputum production Gastrointestinal: Denies: Abdominal Pain, Constipation, Diarrhea, Nausea, Vomiting Genitourinary: Denies: Dysuria, Frequency, Hematuria Musculoskeletal: Reports: Muscle pain. Denies: Joint Pain, Joint Tenderness Skin: Denies: Rash, Wounds Neurological: Denies: Balance problems, Focal weakness, Incoordination, Numbness, Tingling Psychiatric: Reports: Anxiety. Denies: Depression, Homicidal Ideations, Suicidal Ideations Hematologic/ Lymphatic: Denies: Easy Bruising, Easy Bleeding VTE Information - Inpt Only VTE Present on Admission: No VTE Mechan Device Prophylaxis: None VTE Pharm Prophylaxis ordered?: Yes - Physical Exam Vitals/I&O's: Vital Signs Temp Pulse Resp BP Pulse Ox 98.2 F 104 H 22 H 139/88 H 99 03/08/20 18:03 03/08/20 18:03 03/08/20 18:03 03/08/20 18:03 03/08/20 18:03 Oxygen Delivery Method Room Air Weight: 146 lb 13.246 oz Body Mass Index (BMI) 21.0 General: Alert, Oriented x3, Cooperative HEENT: Atraumatic, PERRLA, EOMI, Normocephalic Neck: Supple, No JVD, Negative Carotid Bruits Lungs: Clear to auscultation, Normal air movement Cardiovascular: Regular rate, No murmurs Abdomen: Bowel Sounds Present, Soft, Non Tender Extremities: No edema, Capillary Refill Less than 3 Seconds Skin: No rashes, No breakdown Musculoskeletal: No Tenderness to Palpation of Joints or Extremities Neurological: Cranial nerves II-XII grossly intact Psych/Mental Status: Normal Affect, Appropriate Assessment/Plan All Active Problems Acute opioid withdrawal (Acute) This 30-year-old woman with history of polysubstance use including IV heroin, fentanyl, methamphetamine and sometimes benzodiazepines for medical stabilization of acute opioid withdrawal 1. Acute opioid withdrawal with history of chronic opioid use, dependence and tolerance: Patient is being admitted to [facility] floor. Started on order set for medical stabilization of opioid use with buprenorphine and other supportive medications. 2. Polysubstance use and dependence including methamphetamine, and sometimes benzodiazepines: The patient has not taken benzodiazepines for last 2 days and states has not used regularly for last 3 weeks except 1 dose of Xanax 0.5 mg 2 days ago. 3. Nicotine use and dependence/cigarette smoking: On nicotine patch 4. Healing supraorbital cellulitis/impetigo: Patient developed cellulitis with rash and impetigo on bilateral supraorbital regions and forehead and saw ER physician on 02/07/2020.The patient had completed antibiotic Bactrim DS and Keflex given by ER physician on 02/07/2020. The lesions are mostly healed and scarred. No tenderness. VTE prophylaxis: Low risk, early ambulation encouraged. Inpatient E&M: 38041 Init Hosp L3
--- NOTE | 2020-03-08 20:11 | ED.VIS.GEN ---
History of Present Illness Chief Complaint: Substance Abuse Informant: Patient Narrative: Patient is a 30-year-old male with history of IV drug use presenting for request of detox. Patient states he regularly uses approximately 3 g of heroin a day, 0.5 to 1 g of Xanax or Ativan every other day and occasionally methamphetamines. He last used about 2 hours prior to arrival. Patient was in inpatient detox twice this month but states this time he really wants to get clean. He states he has residential rehab program set up for when he is discharged called really ready. Patient currently does not feel like he is withdrawing. He uses IV heroin. He denies any history of HIV or hepatitis. Denies any medical history at all. Denies any other complaints at this time. Past Medical History - Allergies and Home Meds Allergies/Adverse Reactions: Allergies No Known Allergies Allergy (Verified 03/08/20 18:03) Surgical History: arthroscopy, knee - Sepsis post right knee meniscal repair x2, torn ACLS x2, total hip arthroplasty - Status post left hip surgery during childhood Smoking Status: Current every day smoker Alcohol: None Drugs: Heroin - Family History Paternal Family History: Reports: No pertinent history Maternal Family History: Reports: - - Polysubstance use disorder Review of Systems General: Denies: Chills, Fever, Sweats Eyes: Denies: Visual changes - bilaterally, Diplopia ENT: Denies: Rhinorrhea, Sore throat Cardiovascular: Denies: Chest pain, Palpitations Respiratory: Denies: Dyspnea, Cough, Dyspnea on exertion Gastrointestinal: Denies: Abdominal pain, Nausea, Vomiting, Diarrhea, Melena, Hematochezia Genitourinary: Denies: Dysuria, Hematuria, Frequency Musculoskeletal: Denies: Back pain, Extremity Pain Skin: Denies: Rash, Wounds Neurological: Denies: Headache, Weakness, Numbness Physical Exam Vital Signs/Narrative: Vital Signs Temp Pulse Resp BP Pulse Ox 03/08/20 18:03 98.2 F 104 H 22 H 139/88 H 99 Inital Vital Signs reviewed: Yes General: Well nourished, Well developed, No Acute Distress Head: Normocephalic, Atraumatic Eyes: EOMI, - - Pinpoint pupils. Negative for: Scleral icterus ENT: Moist mucous membranes, No rhinorrhea Neck: Supple, Nontender Cardiovascular: Regular rate, Regular rhythm, No murmurs Respiratory: No distress, CTA bilaterally, Chest nontender Abdomen: Soft, Nontender, Nondistended, Normal bowel sounds Back: Nontender, Normal Inspection Extremities: Nontender, No edema Skin: Normal color, No rash, - - Scattered track edward on upper extremities with no loose associated abscess or cellulitic changes. Neurological: Alert, Oriented x3, Cranial nerves II-XII grossly intact, Normal Strength, Normal Sensation Psychological: Normal affect, Normal Mood Diagnostic/Tx/Re-eval - Medical Decision Making Patient is a evaluated for request of opioid detox. Patient appears mildly intoxicated now is not have any respiratory depression or indication for emergent Narcan. Patient has been in inpatient detox twice in the last month. He states this time is different because he has residential set up for when he is discharged. Patient is accepted to hospitalist service for inpatient detox. Patient is hemodynamically stable in the emergency room. ED Disposition - Plan for ED Patient: Disposition: Acute Care Hospital [facility] Diagnosis: Polysubstance (including opioids) dependence w/o physiol dependence, Nicotine dependence
[2020-03-08 20:44] LABS: Absolute Lymphocyte Count 3.66 X10^3/uL (0.83-4.51); Absolute Neutrophil Count 4.5 X10^3/uL (2.0-7.7); Basophil# 0.04 X10^3/uL; Basophil% 0.4 % (0-1); Eosinophil# 0.31 X10^3/uL; Eosinophils% 3.2 % (0-5); Hematocrit 45.2 % (40-54); Hemoglobin 14.9 g/dL (13.0-16.5); Lymphocyte # 3.66 X10^3/ul (4.0); Lymphocyte % 38.2 % (19-41); Mean Corpuscular Hgb 28.5 pg (27.0-32.0); Mean Corpuscular Volume 86.6 fL (80-94); Mean Platelet Vol. 8.4 fl (6.2-12.0); Monocyte# 1.05 X10^3/uL; NRBC Flagged by Analyzer 0 % (0-5); Neutrophil # 4.49 X10^3/uL (2.7-7.7); Neutrophil % 46.9 % (47-70); Platelet Count 281 K/mm3 (150-450); RBC Distribution Width CV 12.8 % (11.6-14.6); RBC Distribution Width SD 39.7 fl (35.1-43.9); Red Blood Count 5.22 M/mm3 (4.6-6.2); White Blood Count 9.6 K/mm3 (4.4-11.0)
[2020-03-08 20:57] LABS: Prothrombin Time (Protime)PT. 12.9 SECONDS (11.7-14.9)
[2020-03-08 21:12] LABS: Amphetamine Urine VISTA POSITIVE (<1000 ng/mL); Barbiturate Urine VISTA NEGATIVE (< 200 ng/mL); Benzodiazepine Urine VISTA NEGATIVE (< 200 ng/mL); Cocaine Urine VISTA NEGATIVE (< 300 ng/mL); Ecstacy Urine VISTA POSITIVE (< 500 ng/mL); Methadone Urine VISTA NEGATIVE (< 300 ng/mL); PCP Urine VISTA NEGATIVE (< 25 ng/mL); THC Urine VISTA NEGATIVE (< 50 ng/mL); Vista UDS pH Range 7
[2020-03-08 21:13] LABS: AST(SGOT) 36 U/L (15-37); Alanine Aminotransfer ALT/SGPT 65 U/L (16-61); Alkaline Phosphatase 82 U/L (45-117); Anion Gap 3 (5-15); BUN 17 mg/dL (7-18); BUN/Creat Ratio 21.8 RATIO (10-20); Chloride 101 mmol/L (98-107); Creatinine, Serum 0.78 mg/dL (0.70-1.30); EST Glomerular Filtration Rate 124 mL/min (>60); Est Glom Filt Rate - Afr Amer 150 mL/min (>60); Estimated Creatinine Clearance 130.45 ml/min; Globulin 3.9 g/dL (2.2-4.2); Glucose 78 mg/dL (74-106); Magnesium 2.3 mg/dL (1.6-2.6); Protein, Total 7.9 g/dL (6.4-8.2); Sodium Level 139 mmol/L (136-145)
[2020-03-08 21:15] VITALS: BMI 20.7
[2020-03-08 21:21] VITALS: BMI 20.8
[2020-03-08] MEDS: hydrOXYzine PAM 25 MG Capsule 50 MG PO (21:38)
[2020-03-08 21:42] LABS: Alcohol, Blood (Medical)-Serum < 3.0 mg/dL
[2020-03-08 21:52] LABS: Bacteria 0 SEEN /hpf (None Seen); Mucous, Urine 0 SEEN /hpf (<or=2+); Red Blood Cells-Urine 0 SEEN /hpf (0-5); Squamous Epithelial Cells - UA 0 SEEN /hpf (0-5); White Blood Cells 0 SEEN /hpf (0-5)
[2020-03-08 22:01] VITALS: BP 134/79; PULSE 97; RESP 16; TEMP 36.1; O2SAT 97
[2020-03-08 22:15] LABS: Color, Urine Yellow (Yellow); Glucose, Dipstick Normal (Normal); Ketone-Dipstick Negative (Negative); Leukocyte Esterase-Dipstick Negative /ul (Negative); Nitrite-Dipstick Negative (Negative); Occult Blood-Urine Negative /ul (Negative); Protein-Dipstick Negative (Negative); Urine Bilirubin Dipstick Negative (Negative); Urine Clarity Clear (Clear); Urine Urobilinogen Normal (Normal)
[2020-03-09] MEDS: traZODone 100 MG Tablet PO (01:02)
[2020-03-09] MEDS: Gabapentin 300 MG Capsule PO ×2 (01:02→13:02)
[2020-03-09] MEDS: Methocarbamol 750 MG Tablet 1500 MG PO ×2 (01:02→13:02)
[2020-03-09] MEDS: Buprenorphine HCl 2 MG TAB.SUBL SL ×3 (01:06→16:03)
[2020-03-09 06:38] VITALS: BP 93/50; PULSE 64; RESP 16; TEMP 36.5; O2SAT 100
--- NOTE | 2020-03-09 08:05 | PN_ITS ---
Reason for Visit: Follow-up on acute opioid withdrawal Subjective: Patient was seen and examined. Denied any new complaints. No acute events overnight Objective: General: Alert, Oriented x3, Cooperative HEENT: Atraumatic, PERRLA, EOMI, Normocephalic Neck: Supple, No JVD, Negative Carotid Bruits Lungs: Clear to auscultation, Normal air movement Cardiovascular: Regular rate, No murmurs Abdomen: Bowel Sounds Present, Soft, Non Tender Extremities: No edema, Capillary Refill Less than 3 Seconds Skin: No rashes, No breakdown Musculoskeletal: No Tenderness to Palpation of Joints or Extremities Neurological: Cranial nerves II-XII grossly intact Psych/Mental Status: Normal Affect, Appropriate Vitals/I&O's: Vital Signs Temp Pulse Resp BP Pulse Ox 97.7 F L 64 16 93/50 L 100 03/09/20 06:38 03/09/20 06:38 03/09/20 06:38 03/09/20 06:38 03/09/20 06:38 Oxygen Delivery Method Room Air Weight: 65.771 kg Body Mass Index (BMI) 20.7 Laboratory Results 03/08/20 20:25: WBC 9.6, RBC 5.22, Hgb 14.9, Hct 45.2, MCV 86.6, MCH 28.5, MCHC 33.0, RDW Std Deviation 39.7, RDW Coeff of Ganga 12.8, Plt Count 281, MPV 8.4, Immature Gran % (Auto) 0.300, Neut % (Auto) 46.9 L, Lymph % (Auto) 38.2, Hodgeman % (Auto) 11.0 H, Eos % (Auto) 3.2, Baso % (Auto) 0.4, Absolute Neuts (auto) 4.5, Absolute Lymphs (auto) 3.66, Nucleated RBC % 0 03/08/20 20:25: Sodium 139, Potassium 4.0, Chloride 101, Carbon Dioxide 35.0 H, Anion Gap 3 L, BUN 17, Creatinine 0.78, Estim Creat Clear Calc 130.45, Est GFR (MDRD) Af Amer 150, Est GFR (MDRD) Non-Af 124, BUN/Creatinine Ratio 21.8 H, Glucose 78, Calcium 9.0, Magnesium 2.3, Total Bilirubin 0.70, AST 36, ALT 65 H, Alkaline Phosphatase 82, Total Protein 7.9, Albumin 4.0, Globulin 3.9, Albumin/Globulin Ratio 1.0 03/08/20 20:25: PT 12.9, INR 1.0 03/08/20 20:45: Urine Opiates Screen NEGATIVE, Urine Methadone Screen NEGATIVE, Ur Barbiturates Screen NEGATIVE, Ur Phencyclidine Scrn NEGATIVE, Ur Amphetamines Screen POSITIVE H, U Methamphetamin-MDMA POSITIVE H, U Benzodiazepines Scrn NEGATIVE, Urine Cocaine Screen NEGATIVE, U Cannabinoids Screen NEGATIVE, Ur Drug Screen Comment 03/08/20 21:09: Ethyl Alcohol < 3.0 03/08/20 21:45: Urine Color Yellow, Urine Clarity Clear, Urine pH 5.0, Ur Specific [place] 1.030, Urine Protein Negative, Urine Glucose (UA) Normal, Urine Ketones Negative, Urine Occult Blood Negative, Urine Nitrite Negative, Urine Bilirubin Negative, Urine Urobilinogen Normal, Ur Leukocyte Esterase Negative, Urine RBC 0 SEEN, Urine WBC 0 SEEN, Ur Squamous Epith Cells 0 SEEN, Urine Bacteria 0 SEEN, Urine Mucus 0 SEEN Current Medications Acetaminophen (Tylenol) 500 mg PO Q4H PRN PRN PRN Reason: Temp > 100.4 F Al Hydroxide/Mg Hydroxide (Mylanta Ii) 30 ml PO Q6H PRN PRN PRN Reason: dyspesia Bisacodyl (Dulcolax) 10 mg RECTAL DAILY PRN PRN Reason: Constipation Buprenorphine HCl (Buprenorphine Hcl) 4 mg SL Q8H JUSTINO; Taper Stop: 03/12/20 00:59 Last Admin: 03/09/20 01:06 Dose: 4 mg Documented by: Clonidine (Catapres) 0.1 mg PO Q8H PRN PRN PRN Reason: RESTLESSNESS Dicyclomine HCl (Bentyl) 20 mg PO Q6H PRN PRN PRN Reason: Abdominal Discomfort Gabapentin (Neurontin) 300 mg PO Q8H PRN PRN PRN Reason: moderate to severe anxiety Last Admin: 03/09/20 01:02 Dose: 300 mg Documented by: Hydroxyzine Pamoate (Vistaril Pamoate Capsule) 50 mg PO Q6H PRN PRN PRN Reason: mild anxiety Last Admin: 03/08/20 21:38 Dose: 50 mg Documented by: Ibuprofen (Motrin) 600 mg PO Q8H PRN PRN PRN Reason: Pain Score 1-10/10 Loperamide HCl (Imodium) 2 mg PO Q4H PRN PRN PRN Reason: LOOSE STOOLS Methocarbamol (Methocarbamol) 1,500 mg PO Q6H PRN PRN PRN Reason: MUSCLE SPASM Last Admin: 03/09/20 01:02 Dose: 1,500 mg Documented by: Nicotine (Nicoderm Cq (Pbkc)) 21 mg TRANSDERM. DAILY [facility] Last Admin: 03/09/20 01:02 Dose: 21 mg Documented by: Nutritional Formula (Lactose Free) (Ensure Enlive) 120 ml PO 4X/DAY [facility] Last Admin: 03/08/20 22:34 Dose: 120 ml Documented by: Ondansetron HCl (Zofran Odt) 8 mg PO Q8H PRN PRN PRN Reason: NAUSEA Senna (Senokot) 2 tablet PO QHS PRN PRN PRN Reason: Constipation Trazodone HCl (Desyrel) 100 mg PO QHS PRN PRN PRN Reason: INSOMNIA Last Admin: 03/09/20 01:02 Dose: 100 mg Documented by: STROKE Vital Signs/Narrative: Vital Signs Temp Pulse Resp BP Pulse Ox 03/09/20 06:38 97.7 F L 64 16 93/50 L 100 Medical Necessity - Tobacco Use Smoking Status: Current every day smoker Tobacco Use: Cigarettes Assessment/Plan All Active Problems Acute opioid withdrawal (Acute) 1. Acute opioid withdrawal, patient with chronic opioid use History of IV heroin, fentanyl, methamphetamine use Continue to monitor on the opiate withdrawal protocol 2. Nicotine dependence, on replacement 3. Polysubstance use, advised to quit 4. DVT ppx- low risk Inpatient E&M: 16618 [facility] Hosp L2
[2020-03-09 09:00] VITALS: PULSE 115
--- NOTE | 2020-03-09 09:31 | ADDICTION ---
This commercial loan underwriter met with patient in his room this morning to complete MSE, ASAM and DUDIT assessments and to begin processing discharge planning. Patient was tearful throughout this meeting and appeared agitated and irritable, reporting that I don't feel good and noting physical and mental withdrawal symptoms including restless leg, nausea, tearfulness, emotional dysregulation, irritability and body aches. He requested to readmit into [facility] for Residential treatment. This commercial loan underwriter has referred patient to [facility] and is waiting for approval to directly admit into [facility] from [facility]. He appears appropriate for the 4.0 LOC based on his report of use history, relapse risk and ongoing active withdrawal symptoms. This commercial loan underwriter will fax completed documentation to [facility].
[2020-03-09 09:55] VITALS: BP 96/56; PULSE 85; RESP 18; TEMP 36.6; O2SAT 99
[2020-03-09 12:56] VITALS: BP 102/62; PULSE 74; RESP 18; TEMP 36.6; O2SAT 98
[2020-03-09] MEDS: cloNIDine HCl 0.1 MG Tablet PO (13:02)
--- NOTE | 2020-03-09 15:42 | CASEMGMT ---
Social Work Note Pt is listed as being self-pay. Per PFS, pt was provided HCAP and pt declined ER incentive program. Pt has two previous visits to [facility]. SW met with pt on 02/17/2020 and provided financial resources including PFS direct number, HCAP application, [employer], [employer], Emily Strange, RX assistance programs including prescription hope and Medicaid application. SW to remain available if financial concerns arise. Radha Murdock BEATER OUT LEVELING MACHINE, CABLE RIGGER
[2020-03-09 16:01] VITALS: BP 101/64; PULSE 62; RESP 18; TEMP 36.8; O2SAT 98
--- NOTE | 2020-03-09 16:11 | NURSING ---
assisted pt with ordering meals
[2020-03-09] MEDS: Dicyclomine 10 MG Capsule 20 MG PO (19:33)
[2020-03-09] MEDS: hydrOXYzine PAM 25 MG Capsule 50 MG PO (19:33)
[2020-03-09 19:37] VITALS: BP 104/57; PULSE 75; RESP 18; TEMP 36.9; O2SAT 99
[2020-03-10] MEDS: Buprenorphine HCl 2 MG TAB.SUBL SL ×3 (00:42→17:22)
[2020-03-10] MEDS: Gabapentin 300 MG Capsule PO ×2 (00:42→14:26)
[2020-03-10 02:36] VITALS: BP 94/53; PULSE 57; RESP 16; TEMP 36.9; O2SAT 99
[2020-03-10] MEDS: hydrOXYzine PAM 25 MG Capsule 50 MG PO ×2 (08:01→17:22)
[2020-03-10] MEDS: Methocarbamol 750 MG Tablet 1500 MG PO ×3 (08:01→20:26)
[2020-03-10 08:36] VITALS: BP 110/82; PULSE 71; RESP 16; TEMP 37; O2SAT 98
--- NOTE | 2020-03-10 10:30 | PCM.PN.HOSP ---
Reason for Visit: Follow-up on acute opioid withdrawal Subjective: Patient was seen and examined. Denied any new complaints. No acute events overnight Objective: Physical exam: General: Alert, Oriented x3, Cooperative HEENT: Atraumatic, PERRLA, EOMI, Normocephalic Neck: Supple, No JVD, Negative Carotid Bruits Lungs: Clear to auscultation, Normal air movement Cardiovascular: Regular rate, No murmurs Abdomen: Bowel Sounds Present, Soft, Non Tender Extremities: No edema, Capillary Refill Less than 3 Seconds Skin: No rashes, No breakdown Musculoskeletal: No Tenderness to Palpation of Joints or Extremities Neurological: Cranial nerves II-XII grossly intact Psych/Mental Status: Normal Affect, Appropriate Vitals/I&O's: Vital Signs Temp Pulse Resp BP Pulse Ox 98.6 F 71 16 110/82 H 98 03/10/20 08:36 03/10/20 08:36 03/10/20 08:36 03/10/20 08:36 03/10/20 08:36 Oxygen Delivery Method Room Air Weight: 65.771 kg Body Mass Index (BMI) 20.7 Current Medications Acetaminophen (Tylenol) 500 mg PO Q4H PRN PRN PRN Reason: Temp > 100.4 F Al Hydroxide/Mg Hydroxide (Mylanta Ii) 30 ml PO Q6H PRN PRN PRN Reason: dyspesia Bisacodyl (Dulcolax) 10 mg RECTAL DAILY PRN PRN Reason: Constipation Buprenorphine HCl (Buprenorphine Hcl) 2 mg SL Q8H JUSTINO; Taper Stop: 03/12/20 00:59 Last Admin: 03/10/20 08:01 Dose: 2 mg Documented by: Clonidine (Catapres) 0.1 mg PO Q8H PRN PRN PRN Reason: RESTLESSNESS Last Admin: 03/09/20 13:02 Dose: 0.1 mg Documented by: Dicyclomine HCl (Bentyl) 20 mg PO Q6H PRN PRN PRN Reason: Abdominal Discomfort Last Admin: 03/09/20 19:33 Dose: 20 mg Documented by: Gabapentin (Neurontin) 300 mg PO Q8H PRN PRN PRN Reason: moderate to severe anxiety Last Admin: 03/10/20 00:42 Dose: 300 mg Documented by: Hydroxyzine Pamoate (Vistaril Pamoate Capsule) 50 mg PO Q6H PRN PRN PRN Reason: mild anxiety Last Admin: 03/10/20 08:01 Dose: 50 mg Documented by: Ibuprofen (Motrin) 600 mg PO Q8H PRN PRN PRN Reason: Pain Score 1-10/10 Loperamide HCl (Imodium) 2 mg PO Q4H PRN PRN PRN Reason: LOOSE STOOLS Methocarbamol (Methocarbamol) 1,500 mg PO Q6H PRN PRN PRN Reason: MUSCLE SPASM Last Admin: 03/10/20 08:01 Dose: 1,500 mg Documented by: Nicotine (Nicoderm Cq (Pbkc)) 21 mg TRANSDERM. DAILY JUSTINO Last Admin: 03/10/20 08:01 Dose: 21 mg Documented by: Nutritional Formula (Lactose Free) (Ensure Enlive) 120 ml PO 4X/DAY [facility] Last Admin: 03/10/20 08:01 Dose: 120 ml Documented by: Ondansetron HCl (Zofran Odt) 8 mg PO Q8H PRN PRN PRN Reason: NAUSEA Senna (Senokot) 2 tablet PO QHS PRN PRN PRN Reason: Constipation Trazodone HCl (Desyrel) 100 mg PO QHS PRN PRN PRN Reason: INSOMNIA Last Admin: 03/09/20 01:02 Dose: 100 mg Documented by: STROKE Vital Signs/Narrative: Vital Signs Temp Pulse Resp BP Pulse Ox 03/10/20 08:36 98.6 F 71 16 110/82 H 98 Medical Necessity - Tobacco Use Smoking Status: Current every day smoker Tobacco Use: Cigarettes Assessment/Plan All Active Problems Acute opioid withdrawal (Acute) 1. Acute opioid withdrawal, patient with chronic opioid use History of IV heroin, fentanyl, methamphetamine use Continue to monitor on the opiate withdrawal protocol 2. Nicotine dependence, on replacement 3. Polysubstance use, advised to quit 4. DVT ppx- low risk Inpatient E&M: 68666 [facility] Hosp L2
--- NOTE | 2020-03-10 13:04 | ADDICTION ---
This singer songwriter met with patient to continue processing discharge planning. Patient states that he will discharge tomorrow and plans to directly [facility] immediately following d/c from [facility]. [employer] to provide transportation at 12pm.
[2020-03-10] MEDS: Dicyclomine 10 MG Capsule 20 MG PO (14:30)
[2020-03-10 14:33] VITALS: BP 108/61; PULSE 76; RESP 16; TEMP 37.1; O2SAT 98
--- NOTE | 2020-03-10 16:05 | CHAPLAIN ---
Type of Pastoral Visit _x__ Initial Visit ___ Follow-up Visit ___ On-call Visit ___ General Patient Visit ___ Spiritual Assessment ___ Family Conference ___ Bereavement ___ Rapid Response ___ Code Blue ___ Other (describe below) Pastoral Care Referral From _x__ Patient ___ Family ___ Nurse ___ Physician ___ Janitor Cleaner ___ Preparation Supervisor Freezing ___ Other (describe below) Sacrament/Intervention _x__ Active listening ___ Anointing ___ Shinto ___ Bereavement ___ Communion _x__ Claire exploration ___ _x__ Life review _x__ Prayer ___ Reconciliation ___ Sacrament of Sick _x__ Supportive presence ___ Wedding ___ Other (describe below) Pastoral Comments patient welcoming and open to spiritual support; pt lists feelings of guilt and shame; pt has support of his fiancee and attends a local religion with her; pt is planning to enter [address] [place] [address]; pt also open to claire based support groups in the area; presence and prayer given for support
[2020-03-10 20:19] VITALS: BP 119/61; PULSE 72; RESP 18; TEMP 37; O2SAT 98
[2020-03-10] MEDS: cloNIDine HCl 0.1 MG Tablet PO (20:26)
[2020-03-11] MEDS: traZODone 100 MG Tablet PO (00:50)
[2020-03-11] MEDS: Buprenorphine HCl 2 MG TAB.SUBL SL ×2 (00:50→11:57)
[2020-03-11 00:58] VITALS: BP 110/54; PULSE 67; RESP 18; TEMP 36.4; O2SAT 100
[2020-03-11] MEDS: Nicotine Polacrilex 2 MG GUM PO (02:34)
[2020-03-11] MEDS: Gabapentin 300 MG Capsule PO ×2 (02:34→11:51)
--- NOTE | 2020-03-11 09:35 | ADDICTION ---
This brief writer met with patient in his room to finalize discharge plans and to provide support. Patient was informed that he will be picked up around noon today (03/11) by [facility] Peer Supporter, Christina, and will be transported to [facility] for a direct admit upon discharge from [facility]. He verbalized understanding and amiability to this plan.
--- NOTE | 2020-03-11 09:40 | DCINST_ITS ---
- Discharge Diagnoses Current Active Problems: Current Active and Chronic Problems Nicotine dependence (Chronic) Polysubstance (including opioids) dependence w/o physiol dependence (Chronic) Reason(s) for Visit for Discharge Instructions: Acute opioid withdrawal You will use the following diet at home:: Regular Your food should be the consistency of: Regular Your liquids should be the consistency of: Regular/Thin Discharge Activity: Return to Normal Activity Allergies/Adverse Reactions: Allergies No Known Allergies Allergy (Verified 03/08/20 18:03) Medications to take at Discharge NK 02/28/20 Primary Care Physician: Care Physician,No Primary [Primary Care Provider] - Please follow up with your Primary Care Physician in: within 1-2 weeks of discharge Test Results: Test results from this visit will be discussed in further detail at your follow- up appointment, if applicable. Proposed Discharge Date: 03/11/20
--- NOTE | 2020-03-11 09:41 | PCM.DC.SUM ---
Discharge Date and Diagnosis Date of Admission: 03/08/20 Date of Discharge: 03/11/20 - Primary Discharge Diagnosis Acute Problems: Acute opioid withdrawal - Secondary Discharge Diagnosis Chronic Problems: Chronic Problems Nicotine dependence (Chronic) Polysubstance (including opioids) dependence w/o physiol dependence (Chronic) Hospital Course and Treatment Operations: None Procedures: None Summary of Care Provided: The patient is a 30 year old M past medical history of polysubstance use disorder. He uses heroin, fentanyl and methamphetamines was admitted for acute opiate withdrawal. Patient has had multiple recent admissions for the same thing. He will abscess and uses drugs on after discharge. Was managed on the buprenorphine withdrawal protocol. He continued to improve with no acute events. The addiction/behavioral social work followed up with him the hospital. Patient was discharged to follow-up with inpatient addiction treatment program. Subjective: On the day of discharge, patient was seen and examined. Denied any new complaints. Objective: Physical exam: General: Alert, Oriented x3, Cooperative HEENT: Atraumatic, PERRLA, EOMI, Normocephalic Neck: Supple, No JVD, Negative Carotid Bruits Lungs: Clear to auscultation, Normal air movement Cardiovascular: Regular rate, No murmurs Abdomen: Bowel Sounds Present, Soft, Non Tender Extremities: No edema, Capillary Refill Less than 3 Seconds Skin: No rashes, No breakdown Musculoskeletal: No Tenderness to Palpation of Joints or Extremities Neurological: Cranial nerves II-XII grossly intact Psych/Mental Status: Normal Affect, Appropriate - Physical Exam Vitals/I&O's: Vital Signs Temp Pulse Resp BP Pulse Ox 97.6 F L 67 18 110/54 L 100 03/11/20 00:58 03/11/20 00:58 03/11/20 00:58 03/11/20 00:58 03/11/20 00:58 Oxygen Delivery Method Room Air Weight: 65.771 kg Body Mass Index (BMI) 20.7 Current Medications Acetaminophen (Tylenol) 500 mg PO Q4H PRN PRN PRN Reason: Temp > 100.4 F Al Hydroxide/Mg Hydroxide (Mylanta Ii) 30 ml PO Q6H PRN PRN PRN Reason: dyspesia Bisacodyl (Dulcolax) 10 mg RECTAL DAILY PRN PRN Reason: Constipation Buprenorphine HCl (Buprenorphine Hcl) 2 mg SL Q12H JUSTINO; Taper Stop: 03/12/20 00:59 Last Admin: 03/11/20 00:50 Dose: 2 mg Documented by: Clonidine (Catapres) 0.1 mg PO Q8H PRN PRN PRN Reason: RESTLESSNESS Last Admin: 03/10/20 20:26 Dose: 0.1 mg Documented by: Dicyclomine HCl (Bentyl) 20 mg PO Q6H PRN PRN PRN Reason: Abdominal Discomfort Last Admin: 03/10/20 14:30 Dose: 20 mg Documented by: Gabapentin (Neurontin) 300 mg PO Q8H PRN PRN PRN Reason: moderate to severe anxiety Last Admin: 03/11/20 02:34 Dose: 300 mg Documented by: Hydroxyzine Pamoate (Vistaril Pamoate Capsule) 50 mg PO Q6H PRN PRN PRN Reason: mild anxiety Last Admin: 03/10/20 17:22 Dose: 50 mg Documented by: Ibuprofen (Motrin) 600 mg PO Q8H PRN PRN PRN Reason: Pain Score 1-10/10 Loperamide HCl (Imodium) 2 mg PO Q4H PRN PRN PRN Reason: LOOSE STOOLS Methocarbamol (Methocarbamol) 1,500 mg PO Q6H PRN PRN PRN Reason: MUSCLE SPASM Last Admin: 03/10/20 20:26 Dose: 1,500 mg Documented by: Nicotine (Nicoderm Cq (Pbkc)) 21 mg TRANSDERM. DAILY [facility] Last Admin: 03/10/20 08:01 Dose: 21 mg Documented by: Nicotine Polacrilex (Rugby Nicotine (Bkc)) 2 mg PO Q2H PRN PRN PRN Reason: cravings for smoking Last Admin: 03/11/20 02:34 Dose: 2 mg Documented by: Nutritional Formula (Lactose Free) (Ensure Enlive) 120 ml PO 4X/DAY [facility] Last Admin: 03/10/20 20:26 Dose: 120 ml Documented by: Ondansetron HCl (Zofran Odt) 8 mg PO Q8H PRN PRN PRN Reason: NAUSEA Senna (Senokot) 2 tablet PO QHS PRN PRN PRN Reason: Constipation Trazodone HCl (Desyrel) 100 mg PO QHS PRN PRN PRN Reason: INSOMNIA Last Admin: 03/11/20 00:50 Dose: 100 mg Documented by: Discharge Diet: No Restrictions Discharge Activity: Return to Normal Activity Home Medications: Medications to take at Discharge NK 02/28/20 Primary Care Physician: Care Physician,No Primary [Primary Care Provider] - Please follow up with your Primary Care Physician in: within 1-2 weeks of discharge Disposition: inpatient drug rehab program Minutes spent on discharge:: 35 Patient Condition:: Stable Medical Necessity - Tobacco Use Smoking Status: Current every day smoker Tobacco Use: Cigarettes Meaningful Use Info Meaningful Use Diagnoses (Choose all that apply): None applicable Inpatient E&M: 66601 [facility] Hosp
--- NOTE | 2020-03-11 11:08 | PHA.DC.MR ---
Pharmacy Service has performed discharge medication reconciliation for this patient. The patient's discharge medication list was reviewed for discrepancies and discrepancies were resolved. Home Medications NK 02/28/20
[2020-03-11 11:54] VITALS: BP 99/49; PULSE 82; RESP 16; TEMP 36.7; O2SAT 98
== END 2020-03-11 12:01 | DRG 897 ==
LOC: ED 19:21 → MS3 20:37
PROVIDERS: Admitting Provider Internal Medicine; Emergency Provider Emergency Medicine; Visit Provider Internal Medicine
DX: F11.23 Opioid dependence with withdrawal (principal); F17.210 Nicotine dependence, cigarettes, uncomplicated; F41.9 Anxiety disorder, unspecified; G47.00 Insomnia, unspecified; Z96.649 Presence of unspecified artificial hip joint; F19.90 Other psychoactive substance use, unspecified, uncomplicated
CPT/HCPCS: 36415; 80053; 80307; 80320; 81001; 83735; 85025; 85610; 97802; 99281; 99406; G0480

== ENCOUNTER 2020-04-08 02:10 | Inpatient (IN) | payer MEDICAID, SELFPAY ==
[2020-04-08] VITALS (8 sets, daily range): BP systolic 111–134; BP diastolic 60–83; PULSE 77–104; RESP 16–20; TEMP 36.3–37; O2SAT 94–100; BMI 31.1; BMI 20.8; BMI 20.9
--- NOTE | 2020-04-08 02:20 | ED.VIS.GEN ---
History of Present Illness Chief Complaint: Substance Abuse Informant: Patient Onset: Days Context: Gradual Onset Timing: Continuous, Intermittent Current Severity: Moderate Maximum Severity: Moderate Narrative: The patient is a 30-year-old male with medical history significant for polysubstance abuse that presents to the emergency department requesting detox. Patient uses IV heroin daily. He also uses benzodiazepines and methamphetamines intermittently. He states that he was at one point able to stay sober for about 3 years. He relapsed about 3 months ago. He has been in and out of the detox program here 3 separate times. He states he is not been able to stay clean. He states he is had some social issues and basically went through detox to keep his fianc?e happy. He states now because he cannot stay clean, he has not been able to talk to his fianc?e. He states that he has motivation to achieve sobriety. His last use was 2 hours prior to arrival. He states he did inject heroin. He denies being suicidal or homicidal. Prior similar symptoms: Yes Recent Illness/Hospitalization: Yes Past Medical History - Allergies and Home Meds Allergies/Adverse Reactions: Allergies No Known Allergies Allergy (Verified 04/08/20 02:11) Prior records reviewed: Yes Past Medical History: - - Polysubstance abuse Surgical History: arthroscopy, knee - Sepsis post right knee meniscal repair x2, torn ACLS x2, total hip arthroplasty - Status post left hip surgery during childhood Smoking Status: Current every day smoker - Family History Maternal Family History: Reports: - - Polysubstance use disorder His father does not have a history of substance use or psychiatric history but as a matter fact he is healthy. Paternal Family History: Reports: No pertinent history Review of Systems General: Denies: Chills, Fever, Sweats Eyes: Denies: Visual changes - bilaterally, Diplopia ENT: Denies: Rhinorrhea, Sore throat Cardiovascular: Denies: Chest pain, Palpitations Respiratory: Denies: Dyspnea, Cough, Dyspnea on exertion Gastrointestinal: Denies: Abdominal pain, Nausea, Vomiting, Diarrhea, Melena, Hematochezia Genitourinary: Denies: Dysuria, Hematuria, Frequency Musculoskeletal: Denies: Back pain, Extremity Pain Skin: Denies: Rash, Wounds Neurological: Denies: Headache, Weakness, Numbness Physical Exam Vital Signs/Narrative: Vital Signs Temp Pulse Resp BP Pulse Ox 04/08/20 02:12 97.6 F L 104 H 18 131/82 H 97 Inital Vital Signs reviewed: Yes General: Well nourished, Well developed, No Acute Distress Head: Normocephalic, Atraumatic Eyes: Perrl, EOMI ENT: Moist mucous membranes, No rhinorrhea Neck: Supple, Nontender Cardiovascular: Regular rate, Regular rhythm, No murmurs Respiratory: No distress, CTA bilaterally, Chest nontender Abdomen: Soft, Nontender, Nondistended, Normal bowel sounds Back: Nontender, Normal Inspection Extremities: Nontender, No edema, - - Patient has multiple track edward on the upper extremities. There is no evidence of abscess or cellulitis. Skin: Normal color, No rash Neurological: Alert, Oriented x3, Cranial nerves II-XII grossly intact, Normal Strength, Normal Sensation Psychological: Normal affect, Normal Mood Diagnostic/Tx/Re-eval - Medical Decision Making The patient presents requesting detox from heroin. He has had multiple admissions. I did discuss this with the hospitalist, it was felt he would be appropriate for detox admission. Metabolic work-up was pursued. At this point, the patient be admitted for medical detox from opiates. Impression 1. Opiate dependence ED Disposition - Plan for ED Patient:
[2020-04-08 02:48] LABS: Absolute Neutrophil Count 3.4 X10^3/uL (2.0-7.7); Basophil# 0.03 X10^3/uL; Basophil% 0.5 % (0-1); Eosinophil# 0.07 X10^3/uL; Eosinophils% 1.1 % (0-5); Hematocrit 44.2 % (40-54); Hemoglobin 14.3 g/dL (13.0-16.5); Lymphocyte % 30.9 % (19-41); Mean Corp Hgb Conc 32.4 g/dL (32-36); Mean Corpuscular Hgb 28.9 pg (27.0-32.0); Mean Corpuscular Volume 89.3 fL (80-94); Mean Platelet Vol. 8.7 fl (6.2-12.0); Monocyte# 0.74 X10^3/uL; NRBC Flagged by Analyzer 0 % (0-5); Neutrophil % 55.3 % (47-70); Platelet Count 212 K/mm3 (150-450); RBC Distribution Width CV 12.4 % (11.6-14.6); RBC Distribution Width SD 40.4 fl (35.1-43.9); Red Blood Count 4.95 M/mm3 (4.6-6.2); White Blood Count 6.2 K/mm3 (4.4-11.0)
[2020-04-08 03:00] LABS: Alcohol, Blood (Medical)-Serum < 3.0 mg/dL
--- NOTE | 2020-04-08 03:02 | PCM.HP.STD ---
Problem List (1) Nicotine dependence Status: Chronic Qualifiers: (2) Polysubstance (including opioids) dependence with physiol dependence Status: Chronic (3) Tobacco abuse Status: Chronic History of Present Illness Date of Admission: 04/08/20 Chief Complaint: Desire for detoxification The patient is a 30 year old M with a significant history of tobacco abuse; narcotic abuse; methamphetamine abuse and Xanax abuse presenting with a desire to detoxify from drugs. This will be patient's fourth admission at the hospital for detoxification. She reported that on earlier admissions his family was forced him to detoxify but this time around it is is on choice. Apart from our hospital system he has been to multiple centers for detoxification. He reported that he uses about 3 g of heroin daily. He shoots the heroin. The last time that he used heroin was about 2 hours prior to presentation. He started using heroin when he was about age 18 years. However he has stayed 3 years clean in the past. He reports using Xanax 2 mg daily. He takes Xanax by mouth. The last time he used Xanax was about 2 days ago. He reported that he started using Xanax about a month ago. Further he has been using about 1 g of methamphetamine daily. He shoots and smoke methamphetamine. Last time that he used methamphetamine was about 2 hours prior to presentation. He started using methamphetamine about 4 years ago. Past Medical History Past Medical History (Chronic Problems): Chronic Problems Nicotine dependence (Chronic) Polysubstance (including opioids) dependence with physiol dependence (Chronic) Tobacco abuse (Chronic) Allergies No Known Allergies Allergy (Verified 04/08/20 02:11) Home Medications: Ambulatory Orders Medication Instructions Recorded Calcium Carbonate [Tums] 200 mg PO DAILY PRN 04/08/20 Surgical History: arthroscopy, knee - Sepsis post right knee meniscal repair x2, torn ACLS x2, total hip arthroplasty - Status post left hip surgery during childhood Smoking Status: Current every day smoker Tobacco Use: Cigarettes - *Family History Paternal History Items: Diabetes Maternal History Items: Cancer, Diabetes, - - His grandmother was addicted to pain medicines. Review of Systems Constitutional: Denies: Chills, Fever, Weight Change HEENT: Denies: Head Aches, Sinus Congestion, Sinus Drainage Cardiovascular: Denies: Chest Pain, Palpitations Respiratory: Denies: Cough, Shortness of breath at rest, Sputum production Gastrointestinal: Denies: Abdominal Pain, Nausea, Vomiting Genitourinary: Denies: Dysuria Musculoskeletal: Denies: Joint Pain, Joint Tenderness Skin: Denies: Rash, Wounds Neurological: Denies: Numbness, Tingling, Focal weakness Psychiatric: Reports: Anxiety - Intermittent. Denies: Depression, Homicidal Ideations, Suicidal Ideations Hematologic/ Lymphatic: Denies: Easy Bruising, Easy Bleeding VTE Information - Inpt Only VTE Present on Admission: No VTE Mechan Device Prophylaxis: None VTE Pharm Prophylaxis ordered?: No Reason prophylaxis not ordered:: Treatment Not Indicated - Low risk, encouraged to ambulate. Patient Problems: Active and Suspected Problems Desire for detoxification (Acute) - Physical Exam Vitals/I&O's: Vital Signs Temp Pulse Resp BP Pulse Ox 97.6 F L 104 H 18 131/82 H 97 04/08/20 02:12 04/08/20 02:12 04/08/20 02:12 04/08/20 02:12 04/08/20 02:12 Oxygen Delivery Method Room Air Weight: 98.3 kg Body Mass Index (BMI) 31.1 General: Alert, Oriented x3, Cooperative HEENT: Atraumatic, PERRLA, EOMI, Normocephalic Neck: Supple, No JVD, Negative Carotid Bruits Lungs: Clear to auscultation, Normal air movement Cardiovascular: Regular rate, Normal S1, Normal S2, No murmurs Abdomen: Bowel Sounds Present, Soft, Non Tender Extremities: No edema, Capillary Refill Less than 3 Seconds Skin: No rashes, No breakdown, Excoriated - Face and torso Musculoskeletal: No Tenderness to Palpation of Joints or Extremities Neurological: Cranial nerves II-XII grossly intact Psych/Mental Status: Normal Affect, Appropriate Laboratory Results 04/08/20 02:40: WBC 6.2, RBC 4.95, Hgb 14.3, Hct 44.2, MCV 89.3, MCH 28.9, MCHC 32.4, RDW Std Deviation 40.4, RDW Coeff of Ganga 12.4, Plt Count 212, MPV 8.7, Immature Gran % (Auto) 0.200, Neut % (Auto) 55.3, Lymph % (Auto) 30.9, Isabella % (Auto) 12.0 H, Eos % (Auto) 1.1, Baso % (Auto) 0.5, Absolute Neuts (auto) 3.4, Absolute Lymphs (auto) 1.90, Nucleated RBC % 0 04/08/20 02:40: Sodium Pending, Potassium Pending, Chloride Pending, Carbon Dioxide Pending, Anion Gap Pending, BUN Pending, Creatinine Pending, Est GFR (MDRD) Af Amer Pending, Est GFR (MDRD) Non-Af Pending, BUN/Creatinine Ratio Pending, Glucose Pending, Calcium Pending, Total Bilirubin Pending, AST Pending, ALT Pending, Alkaline Phosphatase Pending, Total Protein Pending, Albumin Pending 04/08/20 02:40: Ethyl Alcohol < 3.0 Assessment/Plan All Active Problems Desire for detoxification (Acute) The patient is a 30 year old M with a significant history of tobacco abuse; narcotic abuse; methamphetamine abuse and Xanax abuse presenting with a desire to detoxify from drugs. Desire for detoxification/polysubstance abuse We will put patient on Subutex taper and other adjunctive medications. Nicotine dependence: We will put patient on nicotine patch and nicotine gum PRN. Neurotic excoriation: Received doxycycline at the emergency department. Rash does not look infected. Has been on Bactrim and Keflex in the past. DVT prophylaxis with early ambulation Inpatient E&M: 40754 Init Hosp L2
[2020-04-08 03:05] LABS: AST(SGOT) 47 U/L (15-37); Alanine Aminotransfer ALT/SGPT 107 U/L (16-61); Albumin, Serum 3.6 g/dL (3.2-5.0); Alkaline Phosphatase 82 U/L (45-117); Anion Gap 0 (5-15); BUN 13 mg/dL (7-18); BUN/Creat Ratio 14.4 RATIO (10-20); Chloride 108 mmol/L (98-107); EST Glomerular Filtration Rate 105 mL/min (>60); Est Glom Filt Rate - Afr Amer 127 mL/min (>60); Estimated Creatinine Clearance 123.92 ml/min; Globulin 3.7 g/dL (2.2-4.2); Glucose 117 mg/dL (74-106); Potassium 3.6 mmol/L (3.5-5.1); Protein, Total 7.3 g/dL (6.4-8.2); Sodium Level 143 mmol/L (136-145)
--- NOTE | 2020-04-08 03:13 | ED.RN ---
PER DR. RICHTER REQUEST, PT TO REMAIN IN ED UNTIL LAB WORK HAS RESULTED, AND THEN PT CAN GO TO FLOOR.
--- NOTE | 2020-04-08 03:27 | ED.RN ---
RONNI VEGA WOULD LIKE PT TO PROVIDE URINE SAMPLE PRIOR TO GOING TO FLOOR.
[2020-04-08] MEDS: Doxycycline 100 MG CAPSULE PO (04:04)
--- NOTE | 2020-04-08 04:04 | ED.RN ---
PT ATTEMPTED TO URINATE, UNABLE TO DO SO, MORE 4TH WATER CUP GIVEN. AWARE AND STATES HE'S OKAY TO GO TO FLOOR.
--- NOTE | 2020-04-08 10:01 | ADDICTION ---
Andriy requested to meet with this assembly instructions writer tomorrow due to not feeling well. This assembly instructions writer will attempt to visit and complete assessments with him on 04/09/2020.
--- NOTE | 2020-04-08 14:15 | PCM.PN.HOSP ---
Patient Problems: Active and Suspected Problems Desire for detoxification (Acute) Subjective: Pt admitted at 3 this am for detox. No current issues Vitals/I&O's: Vital Signs Temp Pulse Resp BP Pulse Ox 97.9 F 89 16 115/72 98 04/08/20 10:43 04/08/20 10:43 04/08/20 10:43 04/08/20 10:43 04/08/20 10:43 Oxygen Delivery Method Room Air Weight: 66 kg Body Mass Index (BMI) 20.8 Intake and Output for Last 24 Hours 04/06/20 04/07/20 04/08/20 23:59 23:59 23:59 Intake Total 750 / 750 Balance 750 / 750 Laboratory Results 04/08/20 02:40: WBC 6.2, RBC 4.95, Hgb 14.3, Hct 44.2, MCV 89.3, MCH 28.9, MCHC 32.4, RDW Std Deviation 40.4, RDW Coeff of Ganga 12.4, Plt Count 212, MPV 8.7, Immature Gran % (Auto) 0.200, Neut % (Auto) 55.3, Lymph % (Auto) 30.9, [place] % (Auto) 12.0 H, Eos % (Auto) 1.1, Baso % (Auto) 0.5, Absolute Neuts (auto) 3.4, Absolute Lymphs (auto) 1.90, Nucleated RBC % 0 04/08/20 02:40: Sodium 143, Potassium 3.6, Chloride 108 H, Carbon Dioxide 35.0 H, Anion Gap 0 L, BUN 13, Creatinine 0.90, Estim Creat Clear Calc 123.92, Est GFR (MDRD) Af Amer 127, Est GFR (MDRD) Non-Af 105, BUN/Creatinine Ratio 14.4, Glucose 117 H, Calcium 9.0, Total Bilirubin 0.40, AST 47 H, ALT 107 H, Alkaline Phosphatase 82, Total Protein 7.3, Albumin 3.6, Globulin 3.7, Albumin/Globulin Ratio 1.0 04/08/20 02:40: Ethyl Alcohol < 3.0 Current Medications Acetaminophen (Tylenol) 650 mg PO Q6H PRN PRN PRN Reason: Pain Score 1-10/Temp > 100.7 F Buprenorphine HCl (Buprenorphine Hcl) 0 mg SL Q8H JUSTINO; Taper Stop: 04/11/20 03:59 Calcium Carbonate (Tums) 200 mg PO DAILY PRN PRN PRN Reason: HEARTBURN OR INDIGESTION Clonidine (Catapres) 0.1 mg PO Q8H PRN PRN PRN Reason: RESTLESSNESS Dicyclomine HCl (Bentyl) 20 mg PO Q6H PRN PRN PRN Reason: Abdominal Discomfort Gabapentin (Neurontin) 300 mg PO Q8H PRN PRN PRN Reason: moderate to severe anxiety Hydroxyzine Pamoate (Vistaril Pamoate Capsule) 50 mg PO Q6H PRN PRN PRN Reason: mild anxiety Sodium Chloride () 250 mls @ 15 mls/hr IV .[id number] PRN PRN Reason: Saline Flush Sodium Chloride () 250 mls @ 15 mls/hr IV .[id number] PRN PRN Reason: Additional IVPB Infusion Loperamide HCl (Imodium) 2 mg PO Q4H PRN PRN PRN Reason: LOOSE STOOLS Methocarbamol (Methocarbamol) 1,500 mg PO Q6H PRN PRN PRN Reason: MUSCLE SPASM Nicotine (Nicoderm Cq (Pbkc)) 21 mg TRANSDERM. DAILY [facility] Last Admin: 04/08/20 06:52 Dose: 21 mg Documented by: Nicotine Polacrilex (Rugby Nicotine (Bkc)) 2 mg PO Q2H PRN PRN PRN Reason: Nicotine Craving Ondansetron HCl (Zofran) 8 mg PO Q8H PRN PRN PRN Reason: NAUSEA Sodium Chloride () 10 - 40 ml IV UD PRN PRN Reason: SALINE FLUSH Trazodone HCl (Desyrel) 100 mg PO QHS PRN PRN PRN Reason: INSOMNIA STROKE Vital Signs/Narrative: Vital Signs Temp Pulse Resp BP Pulse Ox 04/08/20 10:43 97.9 F 89 16 115/72 98 Medical Necessity - Tobacco Use Smoking Status: Current every day smoker Tobacco Use: Cigarettes Assessment/Plan All Active Problems Desire for detoxification (Acute) Acute Heroin Withdrawal -opiate withdrawal order set -interestingly his tox is neg for opiates and + for meth and he states that he used about 2 hrs prior to admission -check HIV and hepatitis status -Addiction to see -this is his 5th admission for acute opiate withdrawal since 01/28/2020 Transaminitis -check Hepatitis status -this is new for him since his last admission Polysubstance Abuse -pt admits to benzo abuse (not recent), meth use, and opiate abuse Nicotine Abuse -Patch and prn gum in place Neurotic Excoriation -no current s/o infection -hold abx -supportive meds DVT Prophylaxis -early ambulation Code status -Full
[2020-04-08] MEDS: Methocarbamol 750 MG Tablet 1500 MG PO (14:55)
[2020-04-08] MEDS: hydrOXYzine PAM 25 MG Capsule 50 MG PO (14:55)
[2020-04-08 15:05] LABS: Amphetamine Urine VISTA POSITIVE (<1000 ng/mL); Barbiturate Urine VISTA POSITIVE (< 200 ng/mL); Benzodiazepine Urine VISTA NEGATIVE (< 200 ng/mL); Cocaine Urine VISTA NEGATIVE (< 300 ng/mL); Ecstacy Urine VISTA POSITIVE (< 500 ng/mL); Methadone Urine VISTA NEGATIVE (< 300 ng/mL); PCP Urine VISTA NEGATIVE (< 25 ng/mL); THC Urine VISTA NEGATIVE (< 50 ng/mL); Vista UDS pH Range 7
--- NOTE | 2020-04-08 15:41 | CHAPLAIN ---
Type of Pastoral Visit _x__ Initial Visit ___ Follow-up Visit ___ On-call Visit ___ General Patient Visit ___ Spiritual Assessment ___ Family Conference ___ Bereavement ___ Rapid Response ___ Code Blue ___ Other (describe below) Pastoral Care Referral From _x__ Patient ___ Family ___ Nurse ___ Physician ___ Model And Mold Maker Plaster ___ Die Sinker Apprentice ___ Other (describe below) Sacrament/Intervention ___ Active listening ___ Anointing ___ Yarsani ___ Bereavement ___ Communion ___ Claire exploration ___ ___ Life review ___ Prayer ___ Reconciliation ___ Sacrament of Sick _x__ Supportive presence ___ Wedding ___ Other (describe below) Pastoral Comments patient was seen by this strategy consultant in previous admission; reintroduced self and role to pt who does remember this strategy consultant; pt is awake but is unable to keep eyes open and stay awake at this time; offer made to pt to return tomorrow and pt agrees
[2020-04-08] MEDS: Buprenorphine HCl 2 MG TAB.SUBL SL ×2 (16:06→23:14)
[2020-04-08] MEDS: Dicyclomine 10 MG Capsule 20 MG PO (18:27)
[2020-04-08] MEDS: cloNIDine HCl 0.1 MG Tablet PO (18:27)
[2020-04-08] MEDS: Gabapentin 300 MG Capsule PO (20:27)
[2020-04-09 02:40] VITALS: BP 100/61; PULSE 70; RESP 16; TEMP 36.7; O2SAT 100
[2020-04-09] MEDS: Methocarbamol 750 MG Tablet 1500 MG PO ×3 (02:48→23:48)
[2020-04-09] MEDS: Dicyclomine 10 MG Capsule 20 MG PO ×3 (02:48→23:48)
[2020-04-09] MEDS: Buprenorphine HCl 2 MG TAB.SUBL SL ×3 (08:11→23:48)
[2020-04-09 08:13] VITALS: BP 107/56; PULSE 66; RESP 16; TEMP 36.6; O2SAT 99
--- NOTE | 2020-04-09 08:15 | PN_ITS ---
Patient Problems: Active and Suspected Problems Desire for detoxification (Acute) Subjective: Chief complaint: Follow-up after admission for acute opiate withdrawal. Patient seen and examined. No acute events overnight. Today, he is feeling better, getting better sleep. Symptoms are improving. His vital signs are stable. - Physical Exam Vitals/I&O's: Vital Signs Temp Pulse Resp BP Pulse Ox 98.1 F 70 16 100/61 100 04/09/20 02:40 04/09/20 02:40 04/09/20 02:40 04/09/20 02:40 04/09/20 02:40 Oxygen Delivery Method Room Air Weight: 145 lb 8.081 oz Body Mass Index (BMI) 20.8 Intake and Output for Last 24 Hours 04/07/20 04/08/20 04/09/20 23:59 23:59 23:59 Intake Total 1525 / 1825 500 / 500 Output Total 250 / 250 Balance 1275 / 1575 500 / 500 General: Alert, Oriented x3, Cooperative, No apparent distress HEENT: Atraumatic, PERRLA, EOMI, Normocephalic Oral: Moist Mucosa, No Gingival or Mucosal Lesions/ Ulcerations Neck: Supple, No JVD, Negative Carotid Bruits, Trachea Midline, Thyroid Normal Size and Texture Lungs: Clear to auscultation, Normal air movement, No rhonchi, No wheeze, No rales Cardiovascular: Regular rate, Regular Rhythm, Normal S1, Normal S2, PMI Normal Abdomen: Bowel Sounds Present, Soft, Non Tender, Non-Distended, No Hepato- splenomegaly Extremities: No clubbing, No cyanosis, No edema Skin: No rashes, No breakdown Lymphatic: No Cervical, Supraclavicular, or Inguinal Adenopathy Neurological: Cranial nerves II-XII grossly intact, Neuro grossly intact Psych/Mental Status: Appropriate, Flat Affect, Alert and oriented to time, place, person, mood and affect Laboratory Results 04/08/20 14:10: Urine Opiates Screen NEGATIVE, Urine Methadone Screen NEGATIVE, Ur Barbiturates Screen POSITIVE H, Ur Phencyclidine Scrn NEGATIVE, Ur Amphetamines Screen POSITIVE H, U Methamphetamin-MDMA POSITIVE H, U Benzodiazepines Scrn NEGATIVE, Urine Cocaine Screen NEGATIVE, U Cannabinoids Screen NEGATIVE, Ur Drug Screen Comment 04/09/20 05:56: Hep Bs Antigen Pending, Hep Bs Antibody Pending, Hep B Core Total Ab Pending, Hep B Core IgM Ab Pending, Hepatitis Be Antibody Pending, Hepatitis Be Antigen Pending 04/09/20 05:56: HIV 1&2 Antibody Pending Current Medications Acetaminophen (Tylenol) 650 mg PO Q6H PRN PRN PRN Reason: Pain Score 1-10/Temp > 100.7 F Buprenorphine HCl (Buprenorphine Hcl) 4 mg SL Q8H JUSTINO; Taper Stop: 04/11/20 15:44 Last Admin: 04/09/20 08:11 Dose: 4 mg Documented by: Calcium Carbonate (Tums) 200 mg PO DAILY PRN PRN PRN Reason: HEARTBURN OR INDIGESTION Clonidine (Catapres) 0.1 mg PO Q8H PRN PRN PRN Reason: RESTLESSNESS Last Admin: 04/08/20 18:27 Dose: 0.1 mg Documented by: Dicyclomine HCl (Bentyl) 20 mg PO Q6H PRN PRN PRN Reason: Abdominal Discomfort Last Admin: 04/09/20 02:48 Dose: 20 mg Documented by: Gabapentin (Neurontin) 300 mg PO Q8H PRN PRN PRN Reason: moderate to severe anxiety Last Admin: 04/08/20 20:27 Dose: 300 mg Documented by: Hydroxyzine Pamoate (Vistaril Pamoate Capsule) 50 mg PO Q6H PRN PRN PRN Reason: mild anxiety Last Admin: 04/08/20 14:55 Dose: 50 mg Documented by: Sodium Chloride () 250 mls @ 15 mls/hr IV .[id number] PRN PRN Reason: Saline Flush Sodium Chloride () 250 mls @ 15 mls/hr IV .[id number] PRN PRN Reason: Additional IVPB Infusion Loperamide HCl (Imodium) 2 mg PO Q4H PRN PRN PRN Reason: LOOSE STOOLS Methocarbamol (Methocarbamol) 1,500 mg PO Q6H PRN PRN PRN Reason: MUSCLE SPASM Last Admin: 04/09/20 02:48 Dose: 1,500 mg Documented by: Nicotine (Nicoderm Cq (Pbkc)) 21 mg TRANSDERM. DAILY JUSTINO Last Admin: 04/09/20 08:12 Dose: Not Given Documented by: Nicotine Polacrilex (Rugby Nicotine (Bkc)) 2 mg PO Q2H PRN PRN PRN Reason: Nicotine Craving Ondansetron HCl (Zofran) 8 mg PO Q8H PRN PRN PRN Reason: NAUSEA Sodium Chloride () 10 - 40 ml IV UD PRN PRN Reason: SALINE FLUSH Trazodone HCl (Desyrel) 100 mg PO QHS PRN PRN PRN Reason: INSOMNIA Medical Necessity - Tobacco Use Smoking Status: Current every day smoker Tobacco Use: Cigarettes Assessment/Plan All Active Problems Desire for detoxification (Acute) Acute opioid withdrawal (Acute) This is a 30 years old male patient presented to the emergency room requesting admission for acute opioid withdrawal for medical stabilization. #1 acute opiate withdrawal: Patient has been using IV heroin daily. He is on tapering Subutex, PRN Catapres, Tylenol, Bentyl, Neurontin, Vistaril, Imodium, methocarbamol, Zofran and trazodone. His vital signs are stable. CBC and BMP was unremarkable. LFT revealed slight elevated liver transaminases. Urine drug screen was positive for barbiturates, amphetamines and methamphetamines. Blood alcohol level was less than 3. Hepatitis B serology as well as HIV 1 and 2 are pending. Patient symptoms are getting better. Patient still need inpatient treatment and he is appropriate for inpatient stay for treatment. Plan to continue same treatment. #2 tobacco abuse: Continue NicoDerm patch. #3 multiple skin neurotic excoriations: Reportedly, patient received with doxycycline in the ED and in the past, he was on Bactrim and Keflex. At this time, those skin lesions are not acutely infected. #4 DVT prophylaxis: Low risk patient, no prophylaxis indicated, ambulate. This note was generated with Minde[employer] dictation software. It may contain incorrect words, spelling, and punctuation that were not noted in checking the note before signing. Inpatient E&M: 67110 Subs Hosp L2
[2020-04-09 09:58] LABS: HIV - WCH Non-Reactive (Nonreactive)
--- NOTE | 2020-04-09 10:08 | ADDICTION ---
Andriy refused to meet with this director underwriter sales today to complete assessments and d/c planning. He reported that he does not feel well. This director underwriter sales will attempt to assess patient tomorrow.
[2020-04-09 13:16] VITALS: BP 105/54; PULSE 67; RESP 16; TEMP 36.7; O2SAT 98
[2020-04-09] MEDS: cloNIDine HCl 0.1 MG Tablet PO (13:19)
[2020-04-09] MEDS: Ondansetron 8 MG Tablet PO (13:19)
[2020-04-09] MEDS: Gabapentin 300 MG Capsule PO (13:19)
--- NOTE | 2020-04-09 15:16 | CHAPLAIN ---
Type of Pastoral Visit ___ Initial Visit ___ Follow-up Visit ___ On-call Visit ___ General Patient Visit ___ Spiritual Assessment ___ Family Conference ___ Bereavement ___ Rapid Response ___ Code Blue ___ Other (describe below) Pastoral Care Referral From ___ Patient ___ Family ___ Nurse ___ Physician ___ Aviation Maintenance Technician ___ Bond Analyst ___ Other (describe below) Sacrament/Intervention ___ Active listening ___ Anointing ___ Scientologist ___ Bereavement ___ Communion ___ Claire exploration ___ ___ Life review ___ Prayer ___ Reconciliation ___ Sacrament of Sick ___ Supportive presence ___ Wedding ___ Other (describe below) Pastoral Comments patient is sleeping and does not arouse to his name; left calling card
[2020-04-09] MEDS: hydrOXYzine PAM 25 MG Capsule 50 MG PO ×2 (16:16→23:49)
[2020-04-09 23:43] VITALS: BP 94/52; PULSE 56; RESP 16; TEMP 36.8; O2SAT 99
[2020-04-09] MEDS: traZODone 100 MG Tablet PO (23:48)
[2020-04-10] MEDS: Buprenorphine HCl 2 MG TAB.SUBL SL (07:57)
[2020-04-10] MEDS: Gabapentin 300 MG Capsule PO (08:02)
[2020-04-10] MEDS: Methocarbamol 750 MG Tablet 1500 MG PO (08:02)
[2020-04-10 08:09] VITALS: BP 99/58; PULSE 65; RESP 18; TEMP 37.1; O2SAT 99
--- NOTE | 2020-04-10 08:53 | PN_ITS ---
Patient Problems: Active and Suspected Problems Desire for detoxification (Acute) Subjective: Chief complaint: Follow-up after admission for acute opiate withdrawal for medical stabilization. Patient seen and examined. No acute events overnight. He mentioned that he is feeling okay today. Denies any specific complaints. [facility] staff yesterday mentioned that patient refused to speak to her. His vital signs are stable. - Physical Exam Vitals/I&O's: Vital Signs Temp Pulse Resp BP Pulse Ox 98.7 F 65 18 99/58 L 99 04/10/20 08:09 04/10/20 08:09 04/10/20 08:09 04/10/20 08:09 04/10/20 08:09 Oxygen Delivery Method Room Air Weight: 145 lb 8.081 oz Body Mass Index (BMI) 20.8 Intake and Output for Last 24 Hours 04/08/20 04/09/20 04/10/20 23:59 23:59 23:59 Intake Total 1525 / 1825 1999 200 / 200 Output Total 250 / 250 Balance 1275 / 1575 1999 200 / 200 General: Alert, Oriented x3, Cooperative, No apparent distress HEENT: Atraumatic, PERRLA, EOMI, Normocephalic Oral: Moist Mucosa, No Gingival or Mucosal Lesions/ Ulcerations Neck: Supple, No JVD, Negative Carotid Bruits, Trachea Midline, Thyroid Normal Size and Texture Lungs: Clear to auscultation, Normal air movement, No rhonchi, No wheeze, No rales Cardiovascular: Regular rate, Regular Rhythm, Normal S1, Normal S2, PMI Normal Abdomen: Bowel Sounds Present, Soft, Non Tender, Non-Distended, No Hepato- splenomegaly Extremities: No clubbing, No cyanosis, No edema Skin: No rashes, Excoriated Lymphatic: No Cervical, Supraclavicular, or Inguinal Adenopathy Neurological: Cranial nerves II-XII grossly intact, Neuro grossly intact Psych/Mental Status: Flat Affect, Alert and oriented to time, place, person, mood and affect Laboratory Results 04/09/20 05:56: HIV 1&2 Antibody Non-Reactive Current Medications Acetaminophen (Tylenol) 650 mg PO Q6H PRN PRN PRN Reason: Pain Score 1-10/Temp > 100.7 F Buprenorphine HCl (Buprenorphine Hcl) 2 mg SL Q8H JUSTINO; Taper Stop: 04/11/20 15:44 Last Admin: 04/10/20 07:57 Dose: 2 mg Documented by: Calcium Carbonate (Tums) 200 mg PO DAILY PRN PRN PRN Reason: HEARTBURN OR INDIGESTION Clonidine (Catapres) 0.1 mg PO Q8H PRN PRN PRN Reason: RESTLESSNESS Last Admin: 04/09/20 13:19 Dose: 0.1 mg Documented by: Dicyclomine HCl (Bentyl) 20 mg PO Q6H PRN PRN PRN Reason: Abdominal Discomfort Last Admin: 04/09/20 23:48 Dose: 20 mg Documented by: Gabapentin (Neurontin) 300 mg PO Q8H PRN PRN PRN Reason: moderate to severe anxiety Last Admin: 04/10/20 08:02 Dose: 300 mg Documented by: Hydroxyzine Pamoate (Vistaril Pamoate Capsule) 50 mg PO Q6H PRN PRN PRN Reason: mild anxiety Last Admin: 04/09/20 23:49 Dose: 50 mg Documented by: Sodium Chloride () 250 mls @ 15 mls/hr IV .[id number] PRN PRN Reason: Saline Flush Sodium Chloride () 250 mls @ 15 mls/hr IV .[id number] PRN PRN Reason: Additional IVPB Infusion Loperamide HCl (Imodium) 2 mg PO Q4H PRN PRN PRN Reason: LOOSE STOOLS Methocarbamol (Methocarbamol) 1,500 mg PO Q6H PRN PRN PRN Reason: MUSCLE SPASM Last Admin: 04/10/20 08:02 Dose: 1,500 mg Documented by: Nicotine (Nicoderm Cq (Pbkc)) 21 mg TRANSDERM. DAILY [facility] Last Admin: 04/09/20 08:12 Dose: Not Given Documented by: Nicotine Polacrilex (Rugby Nicotine (Bkc)) 2 mg PO Q2H PRN PRN PRN Reason: Nicotine Craving Ondansetron HCl (Zofran) 8 mg PO Q8H PRN PRN PRN Reason: NAUSEA Last Admin: 04/09/20 13:19 Dose: 8 mg Documented by: Sodium Chloride () 10 - 40 ml IV UD PRN PRN Reason: SALINE FLUSH Trazodone HCl (Desyrel) 100 mg PO QHS PRN PRN PRN Reason: INSOMNIA Last Admin: 04/09/20 23:48 Dose: 100 mg Documented by: Medical Necessity - Tobacco Use Smoking Status: Current every day smoker Tobacco Use: Cigarettes Assessment/Plan All Active Problems Desire for detoxification (Acute) Acute opioid withdrawal (Acute) This is a 30 years old male patient presented to the emergency room requesting admission for acute opioid withdrawal for medical stabilization. #1 acute opiate withdrawal: Patient has been using IV heroin daily. Remained on tapering Subutex, PRN Catapres, Tylenol, Bentyl, Neurontin, Vistaril, Imodium, methocarbamol, Zofran and trazodone. His vital signs are stable. Symptoms are getting better, no specific complaints today. CBC and BMP was unremarkable. LFT revealed slight elevated liver transaminases. Urine drug screen was positive for barbiturates, amphetamines and methamphetamines. Blood alcohol level was less than 3. HIV 1 and 2 antibodies are nonreactive. Hepatitis B serology is pending. [facility] program staff stated that patient refused to talk to them yesterday. Last dose of Subutex will be tomorrow morning. Plan to have [facility] program staff talk to the patient today to determine the plan either inpatient treatment or outpatient treatment. #2 tobacco abuse: Continue NicoDerm patch. #3 multiple skin neurotic excoriations: Reportedly, patient received with doxycycline in the ED and in the past, he was on Bactrim and Keflex. At this time, those skin lesions are not acutely infected. #4 DVT prophylaxis: Low risk patient, no prophylaxis indicated, ambulate. This note was generated with [employer]GR[employer]R dictation software. It may contain incorrect words, spelling, and punctuation that were not noted in checking the note before signing. Inpatient E&M: 21829 Subs Hosp L2
--- NOTE | 2020-04-10 10:09 | ADDICTION ---
This comic book writer attempted to meet with patient in his room. Patient did not rouse to verbal queuing. Patient refused to meet with this comic book writer on 03/29/2020 and 04/09/2020. No discharge plan completed. No assessments completed.
--- NOTE | 2020-04-10 13:34 | NURSING ---
This nurse in to talk w/ patient after recieving phone call Dr. Savage. Verbalized with patient that this nurse was informed he did not wake up to talk with Nane from [facility] again today or make a discharge plan with her. Pt verbalized he was unaware she was in to see him. Explained to patient that per Dr. Savage the plan is still to discharge him tomorrow and that he will have to follow up with [facility] himself upon discharge. Pt verbalized understanding and asked when his next meds were due, explained would discuss with primary RN Stephanie as she would administer them. Pt denies all further needs. Above interaction and question regarding next meds were discussed with Stephanie Primary RN
[2020-04-10 14:08] LABS: HEPATITIS B SURFACE AG Negative (Negative); Hepatitis B Core AB IgM Negative (Negative); Hepatitis B Core Ab Total Negative (Negative); Hepatitis Be Ab Negative (Negative); Hepatitis Be Ag Negative (Negative); Hepatitis C Ab >11.0 s/co ratio (0.0-0.9)
--- NOTE | 2020-04-10 14:10 | NURSING ---
Pt requested to see his nurse. Nurse enters he states he cannot do this he is sorry and he wants to leave AMA. Papers signed and he was escorted to the main entrance.
[2020-04-10 15:11] LABS: Hep B Surface Antibodies Non Reactive (.)
--- NOTE | 2020-04-10 17:36 | DS.PCM_ITS ---
Discharge Date and Diagnosis Date of Admission: 04/08/20 Date of Discharge: 04/10/20 - Primary Discharge Diagnosis Acute Problems: Acute opiate withdrawal admitted for medical stabilization, left the hospital AGAINST MEDICAL ADVICE. - Secondary Discharge Diagnosis Chronic Problems: Chronic Problems Nicotine dependence (Chronic) Polysubstance (including opioids) dependence with physiol dependence (Chronic) Tobacco abuse (Chronic) Hospital Course and Treatment Operations: None Procedures: None Summary of Care Provided: The patient is a 30 year old M presented to the emergency room requesting admission for acute opioid withdrawal for medical stabilization. Patient has been using IV heroin daily. Also, he admits to using occasional Xanax and methamphetamines. Reportedly, patient has been admitted to multiple centers for medical stabilization and detoxification but he relapses. Patient was admitted, started on Subutex taper, PRN Catapres, Tylenol, Bentyl, Neurontin, Vistaril, Imodium, methocarbamol, Zofran and trazodone. His routine blood work was unremarkable. LFT revealed slightly elevated liver transaminases. Urine drug screen was positive for barbiturates, amphetamines and methamphetamines. Blood alcohol level was less than 3. He was tested for HIV 1 and 2 antibodies and they were nonreactive. [facility] staff consulted and they try to speak to the patient on multiple occasions. Patient refused to talk to the [facility] staff couple of times. On the day when he left AMA, [facility] staff tried to talk to the patient again but he won't woke up to talk to the lady. After patient was reluctant to talk to the [facility], he was informed that he would be discharged tomorrow after his last dose of Subutex. Later in the evening, patient stated that he cannot do this anymore and he wants to leave AGAINST MEDICAL ADVICE. Patient left the hospital AGAINST MEDICAL ADVICE. - Physical Exam Vitals/I&O's: Vital Signs Temp Pulse Resp BP Pulse Ox 98.7 F 65 18 99/58 L 99 04/10/20 08:09 04/10/20 08:09 04/10/20 08:09 04/10/20 08:09 04/10/20 08:09 Oxygen Delivery Method Room Air Weight: 145 lb 8.081 oz Body Mass Index (BMI) 20.8 Intake and Output for Last 24 Hours 04/08/20 04/09/20 04/10/20 23:59 23:59 23:59 Intake Total 1525 / 1825 1999 1200 / 1200 Output Total 250 / 250 Balance 1275 / 1575 1999 1200 / 1200 General: Alert, Oriented x3, Cooperative, No apparent distress HEENT: Atraumatic, PERRLA, EOMI, Normocephalic Oral: Moist Mucosa, No Gingival or Mucosal Lesions/ Ulcerations Neck: Supple, No JVD, Negative Carotid Bruits, Trachea Midline, Thyroid Normal Size and Texture Lungs: Clear to auscultation, Normal air movement, No rhonchi, No wheeze, No rales Cardiovascular: Regular rate, Regular Rhythm, Normal S1, Normal S2, PMI Normal Abdomen: Bowel Sounds Present, Soft, Non Tender, Non-Distended, No Hepato- splenomegaly Extremities: No clubbing, No cyanosis, No edema Skin: No rashes, Excoriated Lymphatic: No Cervical, Supraclavicular, or Inguinal Adenopathy Neurological: Cranial nerves II-XII grossly intact, Neuro grossly intact Psych/Mental Status: Flat Affect Laboratory Results 04/09/20 05:56: Hep Bs Antigen Negative, Hep Bs Antibody Non Reactive, Hep B Core Total Ab Negative, Hep B Core IgM Ab Negative, Hepatitis Be Antibody Negative, Hepatitis Be Antigen Negative, Hepatitis C Ab Confirm >11.0 H Home Medications: Medications to take at Discharge Calcium Carbonate [Tums] 200 mg PO DAILY PRN 04/08/20 Primary Care Physician: Care Physician,No Primary [Primary Care Provider] - Disposition: Against Medical Advice Minutes spent on discharge:: 26 Medical Necessity - Tobacco Use Smoking Status: Current every day smoker Tobacco Use: Cigarettes Meaningful Use Info Meaningful Use Diagnoses (Choose all that apply): None applicable Inpatient E&M: 61679 Disch Hosp
== END 2020-04-10 13:57 | disposition left against medical advice (07) | DRG 770 ==
LOC: ED 02:32 → MS3 02:58
PROVIDERS: Internal Medicine; Admitting Provider Hospitalist; Emergency Provider Emergency Medicine; Referring Provider Hospitalist; Visit Provider Hospitalist
DX: F11.23 Opioid dependence with withdrawal (principal); F17.210 Nicotine dependence, cigarettes, uncomplicated; F13.10 Sedative, hypnotic or anxiolytic abuse, uncomplicated; F15.10 Other stimulant abuse, uncomplicated; L98.1 Factitial dermatitis
CPT/HCPCS: 36415; 80053; 80307; 80320; 85025; 86703; 86704; 86705; 86706; 86707; 86803; 87340; 87350; 97802; 99283; 99406; G0480

== ENCOUNTER 2025-04-02 07:30 | Emergency (ER) | payer OTHER, SELFPAY ==
[2025-04-02 07:31] VITALS: BP 125/81; PULSE 68; RESP 16; TEMP 36.9; O2SAT 96; BMI 27.0
--- NOTE | 2025-04-02 08:06 | EDS_ITS ---
HPI History of Present Illness Chief Complaint: Chest Pain Informant: patient Onset/Context/Timing Onset: Days (2) Activity at onset: sudden Timing: Continuous Quality: Positive for Burning and Tightness Location: Substernal (Upper chest and throat) Worsened By: Nothing Relieved By: Nothing Associated Symptoms: Positive for Nausea, Vomiting, Dyspnea, Lightheadedness and Acid Reflux; Negative for Diaphoresis, Cough, Fever or Palpitations Narrative Narrative: Patient presents with chest pain that began 2 days ago. Patient states it began rather suddenly. Patient states it has been constant. Patient describes as burning and tightness. Patient states it is in his upper chest and into his throat. Patient states nothing makes it better and nothing makes it worse. Patient admits to some nausea and vomiting. Patient states he noted some black specks in his emesis when he vomited. Patient admits to some shortness of breath and lightheadedness. Patient denies any fevers or chills. Patient denies any diaphoresis. Patient states he had a recent neck injection for neck pain prior to his chest pain starting. CVD Risk Factors: Positive for Smoking (Nicotine vape user); Negative for Hypertension, Diabetes, Hypercholesterolemia or Family History 1' </=55 PE Risk Factors: Negative for Recent Travel/Surgery, Recent Immobilization, Prior DVT or PE, Cancer or OCP + Smoking + >/=35 PFSH PFSH Medical History no medical history no medical history Home Medications ?Medication ?Instructions ?Recorded ?Last Taken ?Type calcium carbonate 200 mg PO DAILY PRN Heartbur n Or 04/08/20 Unknown History Indigestion omeprazole 20 mg capsule,delayed 20 mg PO DAILY #30 CA PSULES 04/02/25 Unknown Rx release Allergy/AdvReac Type Severity Reaction Status Date / Time No Known Allergies Allergy Verified 04/02/25 07:33 Surgical History no surgical history no surgical history Social History (Updated 04/02/25 @ 08:[address] Yg Blackman, DO) Smoking Status: Current every day smoker tobacco type: e-cigarettes Electronic Cigarette Use: with nicotine ROS ROS ED Constitutional Constitutional ED: Denies chills or fever(s) Eyes Eyes: Reports blurry vision; Denies change in vision ENT ENT ED: Denies rhinorrhea or sore throat Cardiovascular Cardiovascular: Reports chest pain; Denies palpitations Respiratory/Chest Respiratory/Chest: Reports dyspnea; Denies cough Gastrointestinal Gastrointestinal: Reports nausea and vomiting Genitourinary Genitourinary ED: Denies dysuria or hematuria Musculoskeletal Musculoskeletal: Reports neck pain; Denies back pain Integumentary Denies abscess or rash Neurologic Neurologic: Reports headache(s); Denies weakness Allergic/Immunologic Allergic/Immunologic ED: Denies mouth swelling or urticaria EXAM Physical Exam Const Vital Signs: 04/02/25 07:30 04/02/25 07:31 04/02/25 08:34 Temperature 98.4 F Temperature Source Oral Pulse Rate 68 64 Respiratory Rate 16 18 Respiratory Effort Normal Blood Pressure 125/81 H 129/76 H Blood Pressure Mean 95 93 Pulse Ox 96 98 Oxygen Delivery Method Room Air Room Air 04/02/25 08:46 04/02/25 09:00 04/02/25 10:01 Temperature Temperature Source Pulse Rate 65 78 Respiratory Rate 18 16 Respiratory Effort Blood Pressure 116/79 124/78 H Blood Pressure Mean 91 93 Pulse Ox 95 68 Oxygen Delivery Method Room Air Room Air Room Air Positive well nourished and well developed Constitutional Narrative: BMI is 27.0. General Appearance ED: well developed and NAD HEENT Reports moist mucous membranes Neck supple and no JVD Resp normal respiratory effort and clear to auscultation bilaterally Cardio regular rate and regular rhythm GI soft to palpation, non-tender and non-distended Extremity normal to inspection General Extremety ED: Negative for edema or tenderness General Extremity: Negative for edema Neuro oriented x3, CN's II-XII intact bilaterally and no sensory deficits noted Sensorium / Orientation: awake and alert Motor Exam: strength 5/5 throughout Psych mental status grossly normal Heart Score History: Slightly/Non-Suspicious ECG: Normal Age: </= 45 years Risk Factors: 1 or 2 Risk Factors Troponin: </= Normal Limit Score: 1 MDM MDM MDM Narrative Medical decision making narrative: Differential diagnosis includes cardiac dysrhythmia, cardiac ischemia, pneumonia, bronchitis, other abnormality, gastroesophageal reflux disease, and anxiety. EKG will be obtained to assess for cardiac dysrhythmia and cardiac ischemia. Chest x-ray will be obtained to assess for pneumonia and bronchitis. CBC will be obtained to assess for leukocytosis and anemia. Basic metabolic profile will be obtained to assess for electrolyte abnormality and renal function. High-sensitivity troponin will be obtained to assess for cardiac ischemia. History & Record Review Additional record(s) reviewed:: Prior inpatient record and Prior labs Lab Data Attestation: I reviewed the patient's lab results. Lab results narrative: CBC was reviewed and was within normal limits. Basic metabolic profile was reviewed and was within normal limits. High-sensitivity troponin was reviewed and was normal at 8. Labs: Laboratory Results - last 24 hr 04/02/25 07:56 WBC 5.3 RBC 5.69 Hgb 16.7 H Hct 48.0 MCV 84.4 MCH 29.3 MCHC 34.8 RDW Std Deviation 37.3 RDW Coeff of [place] 12.3 Plt Count 200 MPV 9.3 Immature Gran % (Auto) 0.200 Neut % (Auto) 45.6 L Lymph % (Auto) 39.1 [facility] % (Auto) 12.4 H Eos % (Auto) 1.9 Baso % (Auto) 0.8 Absolute Neuts (auto) 2.4 Absolute Lymphs (auto) 2.08 Nucleated RBC % 0 Sodium 141 Potassium 4.0 Chloride 105 Carbon Dioxide 26.0 Anion Gap 10 BUN 15 Creatinine 0.90 Estim Creat Clear Calc 118.29 Est GFR (MDRD) Non-Af 114 BUN/Creatinine Ratio 17.2 Glucose 90 Calcium 8.8 Troponin T High Sens 8 Radiography Chest X-Ray - ED: 1 View, Read by ED Physician, Read by Radiologist and No Acute Disease Diagnostic Testing: Clinical Impression(s) from Imaging Studies Chest X-Ray 04/02/25 08:34 IMPRESSION: No acute cardiopulmonary abnormalities. Reading Location: [facility] Portable 1 view chest x-ray was obtained. On my independent interpretation, l bhumi garcia are clear. There is normal cardiac silhouette. Bony thorax is normal. There is no acute process noted. Radiologist also interpreted the x- ray and agrees. EKG Initial EKG: Attestation: I personally reviewed and interpreted this EKG as follows: Interpretation: Sinus Rhythm (64) and No Acute Injury Pattern Comments: EKG was obtained. On my independent interpretation, it showed a normal sinus rhythm with a rate of 64. OR interval, QRS interval, and QTc intervals were all normal. Adrian was normal. There are no acute ST or T wave changes. Prior EKG tracings: not available for review Prior: No Prior Treatment and Re-Evaluation :: Patient was given aspirin. Patient was given a GI cocktail. Patient was feeling better on reevaluation. Patient has a HEART score of 1. Patient was advised that this is low risk for acute cardiac event. Patient was advised that this could be gastroesophageal reflux disease. Patient was given a prescription for omeprazole. Patient was instructed to follow-up with his primary care physician in 5 to 7 days. Patient understood and was agreeable with plan. All questions were answered. Discharge Plan Triage Chief Complaint: Chest Pain ED Provider: Yg Blackman Dx/Rx/DC Orders Clinical Impression: Chest pain, Gastroesophageal reflux disease Instructions: ED Chest Pain, Uncertain Cause, ED GERD (Adult) Prescriptions: New omeprazole 20 mg capsule,delayed release(DR/EC) 20 mg PO DAILY Qty: 30 0RF No Action calcium carbonate 200 MG tablet,chewable 200 mg PO DAILY PRN (Reason: Heartburn Or Indigestion) Primary Care Provider: Molina Streeter Referrals: Molina Streeter MD [Primary Care Provider, Internal Medicine] - 5-7 Days Print Language: Kenyan Disposition Disposition: Home, Self Care
[2025-04-02 08:34] VITALS: BP 129/76; PULSE 64; RESP 18; O2SAT 98
--- NOTE | 2025-04-02 08:34 | EKG12_ITS ---
Test Reason : CP Blood Pressure : */* mmHG Vent. Rate : 64 BPM Atrial Rate : 64 BPM P-R Int : 164 ms QRS Dur : 92 ms QT Int : 366 ms P-R-T Axes : 75 6 28 degrees QTcB Int : 377 ms Normal sinus rhythm Normal ECG Confirmed by Piter Smions ([id number]), editor dictionary MONI DHILLON ([id number]) on 04/04/2025 5:43:39 AM Referred By: ES Confirmed By: Piter Simons
--- NOTE | 2025-04-02 08:34 | RAD_ITS ---
PROCEDURE: CHEST 1 VIEW (PORTABLE) 04/02/2025 REASON FOR EXAM: CHEST PAIN TECHNIQUE: Frontal view of the chest. COMPARISON: None. FINDINGS: Hardware: Monitor electrodes overlie the chest. Heart: No cardiomegaly. Lungs: Clear. No pleural effusion or pneumothorax. Bones: No acute bony abnormalities. RAD/Chest 1 View (Portable) IMPRESSION: No acute cardiopulmonary abnormalities. Reading Location: [id number]
[2025-04-02 08:49] LABS: Hematocrit 48.0 % (40-54); Hemoglobin 16.7 g/dL (13.0-16.5); Immature Granulocytes Count 0.010 X10^3/uL (0.0-0.0); Mean Corp Hgb Conc 34.8 g/dL (32-36); Mean Corpuscular Volume 84.4 fL (80-94); Mean Platelet Vol. 9.3 fl (6.2-12.0); NRBC Flagged by Analyzer 0 % (0-5); Platelet Count 200 K/mm3 (150-450); RBC Distribution Width CV 12.3 % (11.6-14.6); RBC Distribution Width SD 37.3 fl (35.1-43.9); Red Blood Count 5.69 M/mm3 (4.6-6.2); White Blood Count 5.3 K/mm3 (4.4-11.0)
[2025-04-02] MEDS: Lidocaine 2% Viscous15 ML UDC 15 ML PO (08:51)
[2025-04-02 09:00] VITALS: BP 116/79; PULSE 65; RESP 18; O2SAT 95
[2025-04-02 09:37] LABS: Anion Gap 10 (5-15); BUN 15 mg/dL (4-19); BUN/Creat Ratio 17.2 RATIO (10-20); Calcium,Total 8.8 mg/dL (7.6-11.0); Carbon Dioxide 26.0 mmol/L (21.0-32.0); Chloride 105 mmol/L (98-108); Estimated Creatinine Clearance 118.29 ml/min (50-250); Glucose 90 mg/dL (70-99); Potassium 4.0 mmol/L (3.3-5.1); Troponin T High Sensitivity 8 ng/L (<=22)
[2025-04-02 10:01] VITALS: BP 124/78; PULSE 78; RESP 16; O2SAT 68
[2025-04-02 10:20] LABS: Troponin T High Sens 2 HR < 6 ng/L (<=22)
[2025-04-02 10:25] VITALS: BP 126/80; PULSE 70; RESP 12; TEMP 36.6; O2SAT 99
== END 2025-04-02 10:27 | disposition home or self-care (01) ==
PROVIDERS: Emergency Provider Emergency Medicine; PCP Internal Medicine; Visit Provider Emergency Medicine
DX: R07.89 Other chest pain (principal); K21.9 Gastro-esophageal reflux disease without esophagitis; F17.290 Nicotine dependence, other tobacco product, uncomplicated
CPT/HCPCS: 71045; 80048; 84484; 85025; 93005; 99284; A4216